=== PATIENT | female | born 1955 | race Caucasian/White ===

== ENCOUNTER 2024-07-11 12:58 | Outpatient (AMB) | payer BC, SELFPAY ==
--- NOTE | 2024-07-11 13:06 | MHC.PC.OV ---
Vital Signs 07/11/24 13:10 Height 5 ft 6 in Weight 200 lb BMI 32.3 BP 144/64 H Blood Pressure Location Rt brachial Pulse 79 Pulse Source Pulse Oximeter Temp 97.0 F Pulse Oximetry (%) 94 Intake Visit Reasons: new patient Intake Note: would like to go on ozempic Allergies No Known Allergies Allergy (Verified 07/11/24 15:16) Medication List - Last Reconciled 07/11/24 by Jelena Ramirez PA-C fluoxetine 20 mg PO DAILY lisinopril 20 mg PO DAILY PFSH Medical History (Updated 07/11/24 @ 15:22 by Jelena Ramirez PA-C) Class 1 obesity with body mass index (BMI) of 32.0 to 32.9 in adult Establishing care with new doctor, encounter for Fracture of phalanx of index finger History of mammogram (~03/2024) Renal cell carcinoma of left kidney Renal lesion Osteoarthritis Menopausal symptoms Menopause Insomnia Hypertension Hot flashes Surgical History History of colonoscopy Total knee replacement status Questionnaire PHQ-9 Over the last 2 weeks, how often have you been bothered by any of the following problems? 1. Little interest or pleasure in doing things: not at all 2. Feeling down, depressed, or hopeless: not at all 3. Trouble falling or staying asleep, or sleeping too much: nearly every day 4. Feeling tired or having little energy: several days 5. Poor appetite or overeating: more than half the days 6. Feeling bad about yourself - or that you are a failure or have let yourself or your family down: more than half the days 7. Trouble concentrating on things, such as reading the newspaper or watching television: several days 8. Moving or speaking so slowly that other people could have noticed. Or the opposite - being so fidgety or restless that you have been moving around a lot more than usual: not at all 9. Thoughts that you would be better off or of hurting yourself in some way: not at all Total score: 9 Depression Screening Interpretation: Negative Depression Screening Done: Yes 30764 - PHQ-9 Billing: Yes Source: Developed by Drs. Osvaldo Santo, Patricia Britton, Martinez Rand and colleagues, with an educational isac from [employer]. Thrive Questionnaire I am a: Patient What is your living situation today?: I have a steady place to live Within the past 12 months, did the food you bought not last and you didn't have the money to get more?: Never true Within the past 12 months, did you worry whether your food would run out before you got money to buy more?: Never true Do you have trouble paying for medicines?: No Do you have trouble getting transportation to medical appointments?: No Do you have trouble paying your heating and electricity bill?: No Do you have trouble taking care of your child, family member or friend?: No Do you have trouble with day-to-day activities such as bathing, preparing meals, shopping, managing finances, etc.?: No Are you currently unemployed and looking for a job?: No Are you interested in more education?: No THRIVE Score: 0 AUDIT C Alcohol Use Questionnaire (AUDIT-C) 1. How often do you have a drink containing alcohol?: 4 or more times a week 2. How many drinks containing alcohol do you have on a typical day when you are drinking?: 1 or 2 3. How often do you have six or more drinks on one occasion?: Never Total Score: 4 Score Reviewed/Action Taken: Yes (Is improving her intake of alcohol with this new weight watchers program ) WILLIAM-7 AMB Questionnaire WILLIAM-7 Feeling nervous, anxious, or on edge: 0 = Not at all Not being able to stop or control worryin = Several days Worrying too much about different things: 0 = Not at all Trouble relaxin = Not at all Being so restless that it is hard to sit still: 0 = Not at all Becoming easily annoyed or irritable: 1 = Several days Feeling afraid as if something awful might happen: 0 = Not at all Total WILLIAM-7 score (0-4 normal; 5-9 mild; 10-14 moderate; 15-21 severe): 2 Source: Developed by Drs. Osvaldo Santo, Martinez Diaz and colleagues, with an educational isac from [employer]. WILLIAM-7 Assessment Billing WILLIAM-7 Assessment Tool: WILLIAM-7 Assessment 41008 Physical exam (Primary Care) Vital Signs: Last Vital Signs Temp 97.0 F 03/26/25 13:10 Pulse 79 07/11/24 13:10 BP 144/64 H 07/11/24 13:10 Pulse Ox 94 07/11/24 13:10 Care Plan Goal for BP management: <130/80 will continue current regimen of lisinopril 20 mg daily patient to reassess and will monitor at next visit BMI result Body Mass Index 32.3 BMI Assessment/Plan discussion: High BMI High, discussed plan: lifestyle, weight reduction, dietary, physical activity and alcohol moderation PHQ-9: PHQ-9 Score PHQ-9: Total score 9 07/11/24 13:48 Depression Screening Interpretation: Negative Coding Level of Care Code New Pt Level 4 (42995) Complex EM visit Add On G2211 Diagnoses Establishing care with new doctor, encounter for Z76.89 Insomnia G47.00 Menopause Z78.0 Menopausal symptoms N95.1 Osteoarthritis M19.90 Renal lesion N28.9 Renal cell carcinoma of left kidney C64.2 Hypertension I10 Hot flashes R23.2 Class 1 obesity with body mass index (BMI) of 32.0 to 32.9 in adult E66.811; Z68.32 Additional Codes WILLIAM-7 Assessment Billing - WILLIAM-7 Assessment Tool: WILLIAM-7 Assessment 37040 ([id number]) PHQ-9 - 04466 - PHQ-9 Billing: Yes ([id number]) Assessment & Plan Assessment & Plan (1) Establishing care with new doctor, encounter for: Code(s): Z76.89 - Persons encountering health services in other specified circumstances Category: Medical (2) Insomnia: Code(s): G47.00 - Insomnia, unspecified Category: Medical Plan: Continue CBD gummies for sleep; assess effectiveness. Condition is chronic and stable continue to monitor. (3) Menopause: Code(s): Z78.0 - Asymptomatic menopausal state Category: Medical Plan: Continue fluoxetine; monitor efficacy and symptoms. Condition is chronic and stable continue to monitor. (4) Menopausal symptoms: Code(s): N95.1 - Menopausal and female climacteric states Category: Medical Plan: Continue fluoxetine; monitor efficacy and symptoms. Condition is chronic and stable continue to monitor. (5) Osteoarthritis: Code(s): M19.90 - Unspecified osteoarthritis, unspecified site Category: Medical Plan: Monitor joint function; physical activity encouraged. (6) Renal lesion: Code(s): N28.9 - Disorder of kidney and ureter, unspecified Category: Medical Plan: Monitor for recurrence; condition stable post-procedure. (7) Renal cell carcinoma of left kidney: Comment: s/p Renal Ablation Cryotherapy Code(s): C64.2 - Malignant neoplasm of left kidney, except renal pelvis Category: Medical Plan: Monitor for recurrence; condition stable post-procedure. (8) Hypertension: Code(s): I10 - Essential (primary) hypertension Category: Medical Plan: Continue with lisinopril; monitor blood pressure at home. (9) Hot flashes: Code(s): R23.2 - Flushing Category: Medical Plan: Continue fluoxetine; monitor efficacy and symptoms. (10) Class 1 obesity with body mass index (BMI) of 32.0 to 32.9 in adult: Code(s): E66.811 - Obesity, class 1; Z68.32 - Body mass index [BMI] 32.0-32.9, adult Category: Medical Plan: Patient to improve her diet and exercise regimen as she is currently doing. Condition is chronic and stable continue to monitor. Plan Plan Patient was informed and verbally consented to the use of an ambient scribe for clinic note documentation during this visit. 1. Malignant Neoplasm Of Kidney, Left Post Cryotherapy Monitor for recurrence; condition stable post-procedure. 2. Essential Hypertension Continue with lisinopril; monitor blood pressure at home. 3. Insomnia Continue CBD gummies for sleep; assess effectiveness. 4. Menopausal Symptoms Hot Flashes Continue fluoxetine; monitor efficacy and symptoms. 5. Osteoarthritis With Bilateral Knee Replacements Monitor joint function; physical activity encouraged. Discussion Notes I discussed the ongoing management of her essential hypertension and emphasized the importance of home monitoring of blood pressure. We reviewed her menopausal symptoms and the current regimen with fluoxetine, agreeing to continue as it is effective for her hot flashes. Regarding insomnia, she has successfully transitioned to CBD gummies, which she feels are working well, so ongoing use is reasonable unless side effects emerge. For her osteoarthritis and history of knee replacements, we advised maintaining physical activity within comfort levels to support joint health. Her prior kidney cryotherapy for a malignancy shows no recurrence, and routine follow-up continues to monitor stability. We discussed her interests in weight management options under the [employer] program, including possible pharmaceutical interventions. She will complete recommended lab work, fasting, to assess baseline health before considering medication such as Wegovy. We also reviewed follow-up in six months if labs are normal, sooner if needed. Orders: Orders Comprehensive [place]. Panel Fast Today Z00.00 - Encounter for general adult medical examination without abnormal findings Lipid Panel Today Z00.00 - Encounter for general adult medical examination without abnormal findings C Reactive Protein Today Z00.00 - Encounter for general adult medical examination without abnormal findings Complete Blood Count Auto Diff Today Z00.00 - Encounter for general adult medical examination without abnormal findings Erythrocyte Sedimentation Rate Today Z00.00 - Encounter for general adult medical examination without abnormal findings Hemoglobin A1c Today Z00.00 - Encounter for general adult medical examination without abnormal findings Magnesium Today Z00.00 - Encounter for general adult medical examination without abnormal findings Liver Panel Today Z00.00 - Encounter for general adult medical examination without abnormal findings TSH reflex Free T4 Today Z00.00 - Encounter for general adult medical examination without abnormal findings Vitamin B12 and Folate Today Z00.00 - Encounter for general adult medical examination without abnormal findings Vitamin D 25-OH Total Today Z00.00 - Encounter for general adult medical examination without abnormal findings Patient Instructions: Patient Instructions - Continue taking lisinopril as prescribed. - Monitor blood pressure at home; report significant changes. - Use fluoxetine for managing hot flashes, and notify if improvements aren't observed. - Continue with CBD gummies for sleep, noting their effectiveness. - Engage in regular physical activity to support joint health. - Complete fasting lab tests as ordered to assess overall health before weight management pharmaceutical options. - Follow up in six months or sooner if lab results indicate a need for earlier evaluation. Scribe Plan - Not visible on output: History of Present Illness The patient is a 68-year-old female presenting for new patient appointment to discuss her chronic medical conditions and to establish a new primary care provide and to discuss weight management options. Her medical history is significant for Essential Hypertension, managed with lisinopril, and she has been symptomatically stable. She experiences menopausal hot flashes, for which she has been prescribed fluoxetine, with no symptoms of depression or anxiety. She reports insomnia, managed successfully with CBD gummies after previous use of Ambien. She underwent bilateral knee replacements in 2018 for osteoarthritis, improving her joint function. In 2017, she had cryotherapy for a malignant neoplasm of the left kidney without recurrence. She actively partakes in routine health screenings, including recent mammography and a history of colonoscopy due to family history of colon cancer. Her lifestyle modifications include participation in [employer], where she is considering medical weight management options such as Wegovy. She reports feeling generally well without significant acute complaints. 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 - Exercise: Increasing physical activity. - Nutritional intake: Engaged in [employer] for weight management. - Weight management: Currently exploring pharmaceutical options through [employer], such as Wegovy. Review of Systems - Cardiovascular: Denies chest pain, dyspnea on exertion or resting. - Gastrointestinal: Denies black or bloody stools. - Genitourinary: Denies dysuria, hematuria. - Musculoskeletal: Denies recent falls. - Neurological: Denies dizziness, weakness, or headaches. - Psychiatric: Denies depression and anxiety. Physical Exam Appearance: Alert. Oriented X3. No acute distress. Head: Normal external exam. Normocephalic. Atraumatic. Eyes: Pupils are equal, round, and reactive to light. Extraocular movements intact. Conjunctiva and sclera normal. Eyelids normal. Ears: External auditory canal normal. Tympanic membranes normal. Throat: Pharynx normal. Uvula midline. Moist mucous membranes. Neck: Normal inspection. Neck supple. Full range of motion. No adenopathy. Thyroid Normal. No meningeal signs. No neck mass noted. Cardiovascular: Normal heart rate and rhythm. Heart sound normal. No murmurs noted. Pulses normal throughout. Respiratory: No respiratory distress. Painless inspiration. Breath sounds normal. No wheezes/rales/rhonchi noted. Chest nontender. No accessory muscle usage noted or decreased air movement noted. Abdomen: Soft and nontender. Bowel sounds normal in all 4 quadrants. No distention noted. No organomegaly noted. No visible injury noted. Back: No costovertebral angle tenderness. Full range of motion noted. Skin: Skin warm and dry. Normal skin color. Normal skin turgor. No rashes/lesions/lacerations noted. Extremities: No lower extremity edema. Extremities exhibit normal range of motion. Extremities nontender. Neuro: Oriented X 3. No motor deficit. No sensory deficit. Reflexes normal. Results - Labs: Not completed during the visit, plans made for comprehensive testing including CBC, CMP, HbA1c, thyroid function, and lipid profile in preparation for weight management program.
[2024-07-11 13:10] VITALS: BP 144/64; PULSE 79; TEMP 36.1; O2SAT 94; BMI 32.3
== END 2024-07-11 13:53 | disposition home or self-care (01) ==
LOC: HO.HMCSH 12:58
PROVIDERS: PCP Internal Medicine; Visit Provider Physician Assistant Medical
DX: G47.00 Insomnia, unspecified (principal); N95.1 Menopausal and female climacteric states; I10 Essential (primary) hypertension; E66.811 Obesity, class 1; Z68.32 Body mass index [BMI] 32.0-32.9, adult; M19.90 Unspecified osteoarthritis, unspecified site; N28.9 Disorder of kidney and ureter, unspecified; C64.2 Malignant neoplasm of left kidney, except renal pelvis; R23.2 Flushing

== ENCOUNTER → 2024-07-11 12:58 | Outpatient (BNVA) | payer BC, SELFPAY | PROVIDERS: PCP Internal Medicine; Visit Provider Physician Assistant Medical | DX: Z76.89 Persons encountering health services in other specified circumstances (principal); G47.00 Insomnia, unspecified; N95.1 Menopausal and female climacteric states; M19.90 Unspecified osteoarthritis, unspecified site; N28.9 Disorder of kidney and ureter, unspecified; C64.2 Malignant neoplasm of left kidney, except renal pelvis; I10 Essential (primary) hypertension; R23.2 Flushing; E66.811 Obesity, class 1; Z68.32 Body mass index [BMI] 32.0-32.9, adult; Z96.653 Presence of artificial knee joint, bilateral | CPT/HCPCS: 96127 ==

== ENCOUNTER 2024-07-13 10:32 | Outpatient (REF) | payer MEDICARE, SELFPAY ==
[2024-07-13 13:23] LABS: MANUAL DIFF FLAG NO
[2024-07-13 13:46] LABS: Basophils Absolute Auto 0.1 X10*3/uL (0.0-0.2); Basophils Percent Auto 1.1 % (0-2); Eosinophils Absolute Auto 0.4 X10*3/uL (0.0-0.4); Eosinophils Percent Auto 6.7 % (0-4); Hematocrit 41.8 % (37.0-47.0); Hemoglobin 13.7 g/dl (12.0-16.0); Imm Gran Abs Auto 0.02 X10*3/uL (0.00-0.03); Imm Gran Pct Auto 0.3 % (0.0-0.4); Lymphocytes Absolute Auto 2.5 X10*3/uL (1.2-4.9); Lymphocytes Percent Auto 37.3 % (20-40); Mean Corpuscular HGB Conc 32.8 g/dl (31.0-35.0); Mean Corpuscular Hemoglobin 29.8 pg (27.0-33.0); Mean Corpuscular Volume 90.9 fL (80.0-98.0); Mean Platelet Volume 9.3 fL (9.4-12.3); Monocytes Absolute Auto 0.7 X10*3/uL (0.1-1.2); Neutrophils Absolute Auto 2.9 x10*3/uL (2.0-8.3); Neutrophils Percent Auto 43.6 % (45-73); Platelet Count 293 X10*3/uL (160-400); Red Cell Distribution Width 13.3 % (11.0-16.0); White Blood Count 6.6 X10*3/uL (4.8-10.8)
[2024-07-13 13:51] LABS: Estimated Average Glucose 126 mg/dL; Hemoglobin A1C 152.6079 umol/L; Total Hemoglobin (HGBA1C) 3607.1593 umol/L
[2024-07-13 14:14] LABS: Alanine Aminotransferase 15 U/L (0-31); Albumin Level 4.4 g/dL (3.5-5.0); Anion Gap 10 (12-20); Aspartate Amino Transferase 23 U/L (5-31); Bilirubin Direct 0.2 mg/dL (0.0-0.5); Bilirubin Total 0.5 mg/dL (0.0-1.0); Blood Urea Nitrogen 17 mg/dL (9-16); C Reactive Protein 0.19 mg/dL (< or = 0.50); Calcium 9.4 mg/dL (8.4-10.2); Carbon Dioxide 26 mmol/L (22-29); Chloride 111 mmol/L (96-108); Cholesterol 206 mg/dL (<200); Estimated Glomerular Filt Rate > 60; Glucose Fasting 101 mg/dL (60-99); HDL Cholesterol 64 mg/dL (>40); LDL Cholesterol Calculated 125 mg/dL (<100); Magnesium 2.1 mg/dL (1.6-2.6); Potassium 4.1 mmol/L (3.3-5.1); Sodium 143 mmol/L (135-145); TSH reflex Free T4 1.65 uIU/mL (0.32-4.0); Total Protein 7.2 g/dL (6.5-8.0); Triglycerides 88 mg/dL (<150); Vitamin D 25-OH Total 42.9 ng/mL (>30)
[2024-07-13 14:23] LABS: Folate 11.1 ng/mL (> or = 4.0); Vitamin B12 241 pg/mL (200-900)
[2024-07-13 14:34] LABS: Alkaline Phosphatase 58 U/L (39-117)
[2024-07-13 14:38] LABS: Erythrocyte Sedimentation Rate 5 MM/HR (0-20)
== END 2024-07-13 10:33 | disposition home or self-care (01) ==
LOC: HO.HMGCLDS 10:32
PROVIDERS: Visit Provider Physician Assistant Medical
DX: Z00.00 Encounter for general adult medical examination without abnormal findings (principal); Z13.1 Encounter for screening for diabetes mellitus; Z13.6 Encounter for screening for cardiovascular disorders
CPT/HCPCS: 36415; 80053; 80061; 80076; 82248; 82306; 82607; 82746; 83036; 83735; 84443; 85025; 85652; 86140

== ENCOUNTER 2025-01-11 08:53 | Outpatient (AMB) | payer MEDICARE, SELFPAY ==
--- NOTE | 2025-01-11 09:09 | MHC.PC.OV ---
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 Accompanied by: Self / Same As Patient Allergies No Known Allergies Allergy (Verified 01/11/25 09:40) Medication List - Last Reconciled 01/11/25 by Jelena Ramirez PA-C docusate sodium (Colace) 100 mg PO BID 90 days fluoxetine 20 mg PO DAILY lisinopril 20 mg PO DAILY polyethylene glycol 3350 (Miralax) 17 grams PO BID tirzepatide (weight loss) (Zepbound) 5 mg subcut QWEEK Tobacco use date assessed: 01/11/25 Fall risk assessment: No Falls in past year Last assessed Fall Risk: 01/11/25 Dental Screening Dental Screen Date: 01/11/25 Did you have a dental visit in the last 12 months?: Yes Did you have a dental problem in the last 6 months where you did not have access to dental care?: No Was dental information given to patient?: Patient has dentist HPI 6 month f/u HPI Details The patient is a 69-year-old female presenting for a follow-up visit to address hyperlipidemia and hypertension management. The patient reports a history of hyperlipidemia, with her last cholesterol level recorded at 206 mg/dL and LDL cholesterol at 125 mg/dL. She has been actively managing her weight through [employer] and has successfully reduced her weight from 200 pounds to 176 pounds since June. The patient is considering rechecking her cholesterol levels before starting any medication. The patient also has a history of hypertension, for which she is currently taking lisinopril. She requires a refill for lisinopril and fluoxetine, which are part of her current medication regimen. The patient has a family history of colon cancer, prompting regular colonoscopy screenings. Her last colonoscopy was performed at [facility], and she is due for another screening. She has undergone a mammogram at [facility] this year, which was normal per the patient. The patient has not had a bone density scan recently, despite a history of osteoporosis. She is open to scheduling a repeat scan to assess her bone health. There is a concern for potential vitamin B12 deficiency due to her weight loss regimen, and a recheck of her vitamin B12 levels is planned. Social History - Weight management: Actively participating in [employer] program, resulting in significant weight loss. - Chcf: Patient is retired and managing insurance coverage for medications. [facility]LY [facility] Medical History (Updated 01/11/25 @ 09:46 by Jelena Ramirez PA-C) Preventative health care Osteoporosis screening Hyperlipidemia LDL goal <100 Class 1 obesity with body mass index (BMI) of 32.0 to 32.9 in adult Establishing care with new doctor, encounter for Fracture of phalanx of index finger History of mammogram (~03/2024) Renal cell carcinoma of left kidney Renal lesion Osteoarthritis Menopausal symptoms Menopause Insomnia Hypertension Hot flashes Surgical History History of colonoscopy Total knee replacement status Family History Father BP (high blood pressure) Mother Cancer Parkinson disease Social History Housing: House Alcohol intake: current Alcohol intake frequency: a few times a week Patient Tobacco Use Status: Never used Tobacco service: No Current occupational status: retired Cognitive needs: No Hearing needs: No Vision needs: Yes (rx glasses) Questionnaire PHQ-9 Over the last 2 weeks, how often have you been bothered by any of the following problems? 1. Little interest or pleasure in doing things: not at all 2. Feeling down, depressed, or hopeless: not at all 3. Trouble falling or staying asleep, or sleeping too much: not at all 4. Feeling tired or having little energy: not at all 5. Poor appetite or overeating: not at all 6. Feeling bad about yourself - or that you are a failure or have let yourself or your family down: not at all 7. Trouble concentrating on things, such as reading the newspaper or watching television: not at all 8. Moving or speaking so slowly that other people could have noticed. Or the opposite - being so fidgety or restless that you have been moving around a lot more than usual: not at all 9. Thoughts that you would be better off or of hurting yourself in some way: not at all Total score: 0 Depression Screening Interpretation: Negative Depression Screening Done: Yes 96400 - PHQ-9 Billing: Yes Source: Developed by Drs. Osvaldo Santo, Patricia Britton, Martinez Rand and colleagues, with an educational isac from [employer]. Thrive Questionnaire Date Thrive assessed: 01/11/25 I am a: Patient What is your living situation today?: I have a steady place to live Within the past 12 months, did the food you bought not last and you didn't have the money to get more?: Never true Within the past 12 months, did you worry whether your food would run out before you got money to buy more?: Never true Do you have trouble paying for medicines?: No Do you have trouble getting transportation to medical appointments?: No Do you have trouble paying your heating and electricity bill?: No Do you have trouble taking care of your child, family member or friend?: No Do you have trouble with day-to-day activities such as bathing, preparing meals, shopping, managing finances, etc.?: No Are you currently unemployed and looking for a job?: No Are you interested in more education?: No Please select the resources that you would like help with: None THRIVE Score: 0 AUDIT C Alcohol Use Questionnaire (AUDIT-C) 1. How often do you have a drink containing alcohol?: 2-3 times a week 2. How many drinks containing alcohol do you have on a typical day when you are drinking?: 1 or 2 3. How often do you have six or more drinks on one occasion?: Never Total Score: 3 Score Reviewed/Action Taken: No WILLIAM-7 AMB Questionnaire WILLIAM-7 Date WILLIAM - 7 assessed: 01/11/25 Feeling nervous, anxious, or on edge: 0 = Not at all Not being able to stop or control worryin = Not at all Worrying too much about different things: 0 = Not at all Trouble relaxin = Not at all Being so restless that it is hard to sit still: 0 = Not at all Becoming easily annoyed or irritable: 0 = Not at all Feeling afraid as if something awful might happen: 0 = Not at all Total WILLIAM-7 score (0-4 normal; 5-9 mild; 10-14 moderate; 15-21 severe): 0 Source: Developed by Drs. Osvaldo Santo, Patricia Britton, Martinez Rand and colleagues, with an educational isac from [employer]. WILLIAM-7 Assessment Billing WILLIAM-7 Assessment Tool: WILLIAM-7 Assessment 33769 Review of Systems Const Details: - General: Denies nausea, dizziness, or chest pain. - Gastrointestinal: Reports occasional constipation managed with Colace and MiraLax. All systems reviewed & are unremarkable except as noted in HPI and below Physical exam (Primary Care) Vital Signs: Last Vital Signs Temp 98.2 F 01/11/25 09:10 Pulse 72 01/11/25 09:10 Resp 14 01/11/25 09:10 BP 105/59 L 01/11/25 09:10 Pulse Ox 97 01/11/25 09:10 Oxygen Delivery Method Room Air 01/11/25 09:10 Care Plan Goal for BP management: <140/90 at Goal BMI result Body Mass Index 27.6 BMI Assessment/Plan discussion: High BMI High, discussed plan: lifestyle, weight reduction, dietary, physical activity, alcohol moderation and other Tobacco/Smoking Status: Tobacco use Status Tobacco use date assessed 01/11/25 01/11/25 09:12 Patient Tobacco Use Status Never used Tobacco 01/11/25 09:19 PHQ-9: PHQ-9 Score PHQ-9: Total score 0 01/11/25 09:12 Depression Screening Interpretation: Negative Thrive Assessment: Date of Thrive Assessment Date Thrive assessed 01/11/25 01/11/25 09:12 Const Other: Appearance: Alert. Oriented X3. No acute distress. Head: Normal external exam. Normocephalic. Atraumatic. Eyes: Pupils are equal, round, and reactive to light. Extraocular movements intact. Conjunctiva and sclera normal. Eyelids normal. Throat: Pharynx normal. Uvula midline. Moist mucous membranes. Neck: Normal inspection. Neck supple. Full range of motion. Cardiovascular: Normal heart rate and rhythm. Respiratory: No respiratory distress. Painless inspiration. Abdomen: Soft and nontender. No distention noted. No organomegaly noted. N Back: Full range of motion noted. Skin: Skin warm and dry. Normal skin color. Extremities: Extremities exhibit normal range of motion. Office Procedures Flu Questionnaire Does the patient have a severe egg allergy?: No Does the patient have severe life threatening allergies?: No Does the patient have a fever or illness today?: No Has the patient ever had Guillain-Mckinney Syndrome?: No Has the patient ever had any past reaction to a flu shot?: No Immunizations Fluarix [id number] (PF) 45 mcg (15 mcg x 3)/0.5 mL IM syringe Performing Provider: Jelena Ramirez PA-C [place] [facility] Administered by: HOLLY rKuse on 01/11/25 09:19 Dose Route Admin Location Dispensed Lot Number Expiration Date [employer] 0.5 mL IM Left Deltoid 0.5 mL [id number] 10/15/25 [id number] [employer] VIS Given Date VIS Provided VIS Publication Date 01/11/25 Single Vaccine 24 Eligibility Eligibility Date Funding Source Not [facility] Eligible 01/11/25 Private Results Reviewed Results Reviewed: - Labs: Total cholesterol 206 mg/dL, LDL cholesterol 125 mg/dL. - Labs: Vitamin B12 level previously at 241 pg/mL. Coding Level of Care Code Est Pt Level 4 (50416) Complex EM visit Add On G2211 Diagnoses Hypertension I10 Hyperlipidemia LDL goal <100 E78.5 Osteoporosis screening Z13.820 Preventative health care Z00.00 Insomnia G47.00 Additional Codes PHQ-9 - 14612 - PHQ-9 Billing: Yes ([id number]) WILLIAM-7 Assessment Billing - WILLIAM-7 Assessment Tool: WILLIAM-7 Assessment 44553 ([id number]) Assessment & Plan Assessment & Plan (1) Hypertension: Code(s): I10 - Essential (primary) hypertension Category: Medical Plan: The patient will continue lisinopril for hypertension management, with a prescription refill provided for 90 days with three refills. (2) Hyperlipidemia LDL goal <100: Code(s): E78.5 - Hyperlipidemia, unspecified Category: Medical Plan: The patient will have her cholesterol levels rechecked before considering medication, given the recent weight loss and lifestyle changes. (3) Osteoporosis screening: Code(s): Z13.820 - Encounter for screening for osteoporosis Category: Medical Plan: A bone density scan is recommended to assess the current status of osteoporosis. (4) Preventative health care: Code(s): Z00.00 - Encounter for general adult medical examination without abnormal findings Category: Medical Plan: A vitamin B12 level will be rechecked due to potential deficiency risk associated with weight loss medication. The patient is due for a colonoscopy, given her family history of colon cancer. The patient has completed a mammogram this year, normal per patient. (5) Insomnia: Code(s): G47.00 - Insomnia, unspecified Category: Medical Plan: Patient reports insomnia requesting prescription for Ambien or Xanax at least 15 pills reports she has nightmares with trazodone will discuss this with Dr. Saah and call her back. Plan Plan Patient was informed and verbally consented to the use of an ambient scribe for clinic note documentation during this visit. 1. Hyperlipidemia The patient will have her cholesterol levels rechecked before considering medication, given the recent weight loss and lifestyle changes. 2. Hypertension The patient will continue lisinopril for hypertension management, with a prescription refill provided for 90 days with three refills. 3. Osteoporosis A bone density scan is recommended to assess the current status of osteoporosis. 4. Vitamin B12 Deficiency Risk A vitamin B12 level will be rechecked due to potential deficiency risk associated with weight loss medication. 5. Preventative Care: Colon Cancer Screening The patient is due for a colonoscopy, given her family history of colon cancer. 6. Preventative Care: Mammogram The patient has completed a mammogram this year, normal per patient. During the visit, we discussed the importance of rechecking cholesterol levels before initiating medication, considering the patient's significant weight loss and lifestyle changes. We also reviewed the need for a bone density scan due to the patient's history of osteoporosis and the potential risk of vitamin B12 deficiency with her current weight loss regimen. Preventative care measures, including colonoscopy and mammogram, were addressed, with plans to follow up on pending results and schedule necessary screenings. Orders: Orders Vitamin B12 and Folate Today Z00.00 - Encounter for general adult medical examination without abnormal findings XR DEXA axial skeleton Today M81.0 - Age-related osteoporosis without current pathological fracture Zinc Today Z00.00 - Encounter for general adult medical examination without abnormal findings Vitamin B1 Today Z00.00 - Encounter for general adult medical examination without abnormal findings Comprehensive [place]. Panel Fast Today Z00.00 - Encounter for general adult medical examination without abnormal findings Influenza [id number] Immunization Today Z23 - Encounter for immunization Lipid Panel Today Z00.00 - Encounter for general adult medical examination without abnormal findings Vitamin A Today Z00.00 - Encounter for general adult medical examination without abnormal findings Vitamin D 25-OH Total Today Z00.00 - Encounter for general adult medical examination without abnormal findings Medications: New docusate sodium (Colace) 100 mg PO BID 180 caps 3RF 90 days lisinopril 20 mg PO DAILY 90 tabs 3RF polyethylene glycol 3350 (Miralax) 17 grams PO BID 100 ea 3RF fluoxetine 20 mg PO DAILY 90 caps 3RF Patient Instructions: - Schedule a follow-up appointment in six months or sooner if needed. - Continue with current weight management program and monitor cholesterol levels. - Refill lisinopril and fluoxetine prescriptions as directed. - Complete recommended screenings, including colonoscopy and mammogram. - Consider taking vitamin D and B12 supplements as discussed.
[2025-01-11 09:10] VITALS: BP 105/59; PULSE 72; RESP 14; TEMP 36.8; O2SAT 97; BMI 27.6
--- OUTSIDE RECORDS SUMMARY | 2025-01-11 09:28 | XMS_ITS | Clinical Summary ---
Author Organization [facility] Address [address] [facility] [address] [place] [address] Phone Care Team Providers Care Director Immunology Name Role Phone Heena Hurt MOTOR AND CHASSIS INSPECTOR Unavailable [phone] Pcp, Unknown Primary Care Provider Unavailabl e Allergies No known active allergies Medications famotidine (PEPCID) 10 MG tablet Take 10 mg by mouth daily as needed for heartburn. Active acetaminophen (TYLENOL) 325 mg tablet Take 650 mg by mouth every 6 (six) hours as needed for mild pain (prn). Active PROAIR HFA 90 mcg/actuation inhaler INHALE 2 PUFFS BY MOUTH EVERY 4 HOURS NEEDED SHAKE WELL BEFORE USING 8.5 g 2 1 Active amoxicillin (AMOXIL) 500 MG capsule Take 4 capsules by mouth one hour before dental procedure 4 capsule 4 2 Active ibuprofen (MOTRIN ORAL) Take by mouth. prn Active lisinopril (PRINIVIL,ZESTRIL ) 20 MG tabletIndications :Essential hypertension take 1 tablet by mouth daily 90 tablet 3 4 Active FLUoxetine (PROZAC) 20 MG capsuleIndication s:Other depression take 1 capsule by mouth daily 90 capsule 3 4 Active gabapentin (NEURONTIN) 300 MG capsuleIndication s:Foraminal stenosis of lumbar region Take 1 capsule (300 mg total) by mouth 2 (two) times a day as needed. 60 capsule 4 Active zolpidem (AMBIEN) 10 mg tablet TAKE 1/2 TO 1 TABLET BY MOUTH AT BEDTIME NEEDED 20 tablet 4 Active Active Problems Problem Noted Date Diagnosed Date Foraminal stenosis of lumbar region 06/21/2023 Primary insomnia 03/30/2023 Acute bilateral low back pain with bilateral sci atica 03/30/2023 Assessment & Plan (05/19/2023 10:31 AM EST): B/l LE seem slightly weaker than the b/l upper ext- however, they are symmetrical. She does not feel her legs are any weaker. She was unaware that the PT ref was placed in Dec- she will call them as this has helped in the past. If not better we discuss a ref to [facility] or back to Dr. 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 She does not feel her legs are any weaker. She was unaware that the PT ref was placed in Dec- she will call them as this has helped in the past. If not better we discuss a ref to [facility] or back to Dr. Poon as next steps to which she was agreeable Seasonal allergies 08/30/2019 History of bilateral knee replacement 09/21/2018 Essential hypertension 09/21/2018 History of renal cell carcinoma 08/01/2017 Overview (06/08/2023): Cancer was dx by Dr. Morales at [facility] in 2017. 11/2016 had a bx done left kidney mass, path= renal cell carcinoma,clear cell type. Was tx with ablation cryotherapy in 01/2017 Immunizations Immunization Administration Dates Next Due COVID-19 (Pre-02/07) Pfizer Vaccine, mRNA, PF ,06/30/2020 INFLUENZA, SPLIT VIRUS, TRIVALENT PF 02/15/2018, 12/23/2016 INFLUENZA, SPLIT VIRUS, TRIVALENT W/ PRESERVATIV E IM 02/18/2014 Influenza Quadrivalent Preservative Free IM 01/16,01/10/2020 Influenza, Unspecified Formulation 01/16/2023 Pneumococcal conjugate PCV13 01/10/2020 Pneumococcal polysaccharide PPSV23 01/01/2021, Tdap 01/10/2020,09/27/2017 Tetanus toxoid, unspecified formulation 05/03/19 00 Family History Medical History Relation Comments Hyperlipidemia Brother Hypertension Brother No Known Problems Daughter Heart attack Father Hypertension Father Stroke Maternal Grandmother Stroke Maternal Uncle Breast cancer Mother Cancer Mother Colon cancer Mother Parkinson's disease Mother Hypertension Sibling No Known Problems Sister 1 Hyperlipidemia Sister 2 Hypertension Sister 2 Lung cancer Sister 2 Thyroid cancer Sister 2 Ulcerative colitis Sister 2 No Known Problems Son Relation Status Comments Brother Alive Daughter Alive Father (Age 63) Maternal Grandmother Maternal Uncle Mother Sibling Sister 1 Alive Sister 2 Alive Son Alive Social History Tobacco Use Types Packs/Day Years Used Date Smoking Tobacco: Never Smokeless Tobacco: Never Tobacco Cessation:Counseling Given: Not Answered Alcohol Use Standard Drinks/Week Comments Yes 2 (1 standard drink = 0.6 oz pur e alcohol) 1-2 drinks, 2-3 x week, wine Child or Family Care Answer Date Record ed Do you have problems with on e of the following making it difficult for you to work, study, or receive health care? No 03/30/2023 Education Answer Date Recorded Are you interested in more education? Not on ashia e 06/24/2023 Are you concerned about learning? Not on file 06/24/2023 No 06/24/2023 No 06/24/2023 Food Answer Date Recorded Within the past 6 months we worried whether our food would run out before we got money to buy more. Never True 03/30/2023 Within the past 6 months the food we bought just didn't last and we didn't have enough money to get more. Never True Residential Stability Answer Date Recor ded What is your housing situation today? I have melissa sing 03/30/2023 How many times have you move d in the past 12 months? Zero (I did not move) 03/30/2023 Paying for Meds Answer Date Recorded Do you have trouble paying for medicines? No 03/30/2023 Paying Utility Bills Answer Date Record ed Do you have trouble paying your heating or elect ricity bill? No 03/30/2023 Transportation Answer Date Recorded Has the lack of transportati on kept you from medical appointments or from getting medications? No 03/30/2023 Unemployment Answer Date Recorded Are you currently unemployed or working on a part-time or temporary basis, and looking for work? No 06/22/2021 Digital Access Answer Date Recorded No 03/30/2023 Yes 03/30/2023 Do you have reliable internet access at home? Ye s 03/30/2023 Do you have a device (e.g., phone, tablet, computer) with a working camera? Yes 03/30/2023 Intimate Partner Violence Answer Date R ecorded Denied Basic Needs Not on file 03/30/2023 In the past 12 months have y ou been in a relationship with a person who hurts, threatens, or tries to control you? No 03/30/2023 Worried food would run out Not on file 03/30 In the past 12 months have y ou been in a relationship with a person who hurts, threatens, or tries to control you? No 03/30/2023 Comments No Sex and Gender Information Value Date Recorded Sex Assigned at Not on file Legal Sex Female 9:53 PM EDT Gender Identity Not on file Sexual Orientation Not on file Last Filed Vital Signs Vital Sign Reading Time Taken Comments Blood Pressure 110/60 05/19/2023 8:32 AM EST Pulse 72 05/19/2023 8:32 AM EST Temperature 36.4 C (97.6 F) 05/19/2023 8:32 AM EST Respiratory Rate 16 03/30/2023 10:44 AM EST Oxygen Saturation 99% 05/19/2023 8:32 AM EST Inhaled Oxygen Concentration - - Weight 84.8 kg (187 lb) 05/19/2023 8:32 AM EST Height 168.3 cm (5' 6.25 ) 05/19/2023 8:32 AM ES T Body Mass Index 29.96 05/19/2023 8:32 AM EST Plan of Treatment Health Maintenance Due Date Last Done Comments COLOGUARD 2001 FIT TEST 2001 FOBT 2001 SIGMOIDOSCOPY 2001 VIRTUAL COLONOSCOPY 2001 ZOSTER VACCINES (1 of 2) 2006 BLOOD PRESSURE 11/17/2023 05/19/2023 DEPRESSION SCREENING 03/30/2024 03/30/2023 CREATININE LEVEL 04/04/2024 04/04/2023, , 06/22/2021, Additional history exists POTASSIUM LEVEL 04/04/2024 04/04/2023, 03/0 10/2021, 10/17/2018, Additional history exists MAMMOGRAM 09/21/2024 09/21/2022, 02/16, 11/29/2019, Additional history exists INFLUENZA VACCINE (#1) 2024 , 01/26/2021, 01/10/2020, Additional history exists COVID-19 VACCINE ( season) 2024 01/20/2021, 07/28/2020, 06/30/2020 SCREENING FOR DIABETES 04/04/2026 , 06/22/2021, 12/23/2016 LIPID PANEL 04/04/2028 04/04/2023, 03/18, 04/04/2023, Additional history exists Adult Td,Tdap Booster 01/09/2030 01/10/2020, 018 RSV VACCINE (1 - 1-dose 75+ series) 08/22/2031 COLONOSCOPY 12/22/2032 12/22/2022, 06/07/2013 COLORECTAL CANCER SCREENING 12/22/2032 OSTEOPOROSIS SCREENING INITIAL (ONE-TIME) Completed 11/03/2018 PNEUMOCOCCAL VACCINES (50+ years) Completed 01/01/2021, 01/10/2020, 07/07/2012 HEPATITIS C SCREENING Completed 06/22/2021, 022 SMOKING STATUS SCREENING (Once After 26 Yrs) Completed 05/19/2023 HEPATITIS A VACCINES Aged Out No long er eligible based on patient's age to complete this topic HIB VACCINES Aged Out No longer eligi ble based on patient's age to complete this topic MENINGOCOCCAL VACCINES (ACWY) Aged Out No longer eligible based on patient's age to complete this topic MENINGOCOCCAL VACCINES (B) Aged Out N o longer eligible based on patient's age to complete this topic Medical Devices Not on file Procedures Procedure Name Priority Date/Time Associated Diagnosis Comments COMPREHENSIVE METABOLIC PANEL Routine 04/04/2023 1:19 PM EST Routine general medical examination at a health care facility OUTSIDE HDL Routine 04/04/2023 OUTSIDE GLUCOSE FASTING Routine 04/04/2023 OUTSIDE POTASSIUM LEVEL Routine 04/04/2023 HM COLONOSCOPY FOR RESULT ENTRY ONLY Routine 12/22/2022 HM MAMMOGRAPHY Routine 09/21/2022 HEPATITIS C ANTIBODY, QUALITATIVE Routine 06/22/2021 BD DXA SCREENING Routine 11/03/2018 from Last 3 Months or Most Recently Relevant to Health Maintenance Results * Comprehensive metabolic panel (04/04/2023 1:19 PM EST) Blood Result [facility] Heena Hurt NP LAB BLOOD ORDERABLES Final Resu lt [address] [address] * Outside Potassium Level (04/04/2023) Potassium level - External 4.3 3.4 - 5.0 mmol/L Result [facility] Historical Provider LAB BLOOD ORDERABLES Ariana l Result * Outside Glucose,Fasting (04/04/2023) Glucose, fasting - External 96 65 - 99 mg/dL Result [facility] Historical Provider LAB BLOOD ORDERABLES Ariana l Result * Outside HDL (04/04/2023) HDL - External 77 40 - 80 mg/dL Result [facility] Historical Provider LAB BLOOD ORDERABLES Ariana l Result * HM COLONOSCOPY FOR RESULT ENTRY ONLY (12/22/2022) us Heena Hurt NP HEALTH MAINTENANCE Edited Resul t - Final * HM MAMMOGRAPHY FOR RESULT ENTRY ONLY (09/21/2022) us Heena Hurt NP HEALTH MAINTENANCE Edited Resul t - Final * Hepatitis C antibody, qualitative (06/22/2021) us Heena Hurt NP LAB BLOOD ORDERABLES Edited Res ult - Final * DXA Screening (11/03/2018) Anatomical Region Laterality Modality Bone Density Bone Density Heena Hurt NP IMG BD BONE DENSITY DEXA Edited Result - Final from Last 3 Months or Most Recently Relevant to Health Maintenance Insurance [facility] [address] [place], [place] [id number] [place], [place] [id number] [facility] PPO PHCS [facility] PPO [facility] Care Teams Director Immunology Relationship Specialty Start Date End Date Pcp, Unknown PCP - General 06/17/23 Heena Hurt NP [email or web address] Historical LMR Provider 01/31/17 Additional Source Comments The information contained in this document represents components of the legal health record. It is not the complete legal health record.[facility]
--- OUTSIDE RECORDS SUMMARY | 2025-01-11 09:28 | XMS_ITS | Clinical Summary ---
Author Organization [facility] it Address [address] [place] [address] Care Team Providers Care Marketing Team Lead Name Role Phone Unavailable Primary Care Provider Unavailabl e Social History Tobacco Use Types Packs/Day Years Used Date Smoking Tobacco: Never Assessed Comments Unknown Sex and Gender Information Value Date Recorded Sex Assigned at Not on file Legal Sex Female 5:15 PM EST Gender Identity Not on file Sexual Orientation Not on file Plan of Treatment Health Maintenance Due Date Last Done Comments Breast Cancer Screening 1955 Zoster Vaccines (1 of 2) 2006 Depression Screening 04/18/2024 COVID-19 Vaccine ( - 2024- season) 2024 01/20/2021, 07/28/2020, 06/30/2020 Influenza Vaccine (#1) 2024 3, 01/16/2023, 01/26/2021, Additional history exists DTaP,Tdap,and Td Vaccines (3 - Td or Tdap) 01/09/2030 01/10/2020, 09/27/2017 RSV Immunization Adult Patients (1 - 1-dose 75+ series) 08/22/2031 Pneumococcal Vaccine: 50+ Years Completed 01/01/2021, 01/10/2020, 07/07/2012 HIB Vaccines Aged Out No longer eligi ble based on patient's age to complete this topic HPV Vaccines Aged Out No longer eligi ble based on patient's age to complete this topic Hepatitis A Vaccines Aged Out No long er eligible based on patient's age to complete this topic Hepatitis B Vaccines Aged Out No long er eligible based on patient's age to complete this topic IPV Vaccines Aged Out No longer eligi ble based on patient's age to complete this topic MMR Vaccines Aged Out No longer eligi ble based on patient's age to complete this topic Meningococcal ACWY Vaccine Aged Out N o longer eligible based on patient's age to complete this topic Meningococcal B Vaccine Aged Out No l onger eligible based on patient's age to complete this topic RSV Immunization Patients Under 20 months Aged Out No longer eligible based on patient's age to complete this topic Varicella Vaccines Aged Out No longer eligible based on patient's age to complete this topic
== END 2025-01-11 09:37 | disposition home or self-care (01) ==
LOC: HO.HMCH 08:53
PROVIDERS: PCP Internal Medicine; Visit Provider Physician Assistant Medical
DX: I10 Essential (primary) hypertension (principal); E78.5 Hyperlipidemia, unspecified; Z13.820 Encounter for screening for osteoporosis; Z00.00 Encounter for general adult medical examination without abnormal findings; G47.00 Insomnia, unspecified; Z23 Encounter for immunization

== ENCOUNTER → 2025-01-11 08:53 | Outpatient (BNVA) | payer MEDICARE, SELFPAY | PROVIDERS: PCP Internal Medicine; Visit Provider Physician Assistant Medical | DX: Z00.00 Encounter for general adult medical examination without abnormal findings (principal); I10 Essential (primary) hypertension; G47.00 Insomnia, unspecified; E78.5 Hyperlipidemia, unspecified; M81.0 Age-related osteoporosis without current pathological fracture; Z23 Encounter for immunization | CPT/HCPCS: 90471; 90656; 96127; 99212 ==

== ENCOUNTER 2025-01-21 08:18 | Outpatient (REF) | payer MEDICARE, SELFPAY ==
--- OUTSIDE RECORDS SUMMARY | 2025-01-21 08:41 | XMS_ITS | Clinical Summary ---
Author Organization [facility] it Address [address] [place] [address] Care Team Providers Care Foam Rubber Molder Name Role Phone Unavailable Primary Care Provider [...]
--- OUTSIDE RECORDS SUMMARY | 2025-01-21 08:41 | XMS_ITS | Clinical Summary ---
Author Organization [facility] Address [address] [facility] [address] [place] [address] Phone Care Team Providers Care Ground Worker Name Role Phone Heena Hurt CHIEF ORDER DISPATCHER Unavailable [phone] Pcp, Unknown Primary Care Provider Unavailabl [...] Cancer was dx by Dr. Morales at [facility] in 2017. 11/2016 had a bx done [...] panel (04/04/2023 1:19 PM EST) Blood Result [facility] Heena Hurt NP LAB BLOOD ORDERABLES Final Resu lt [address] [address] * Outside Potassium Level (04/04/2023) Potassium level - External 4.3 3.4 - 5.0 mmol/L Result [facility] Historical Provider LAB BLOOD ORDERABLES Ariana l Result * Outside Glucose,Fasting (04/04/2023) Glucose, fasting - External 96 65 - 99 mg/dL Result [facility] Historical Provider LAB BLOOD ORDERABLES Ariana l Result * Outside HDL (04/04/2023) HDL - External 77 40 - 80 mg/dL Result [facility] Historical Provider LAB BLOOD ORDERABLES [...] Most Recently Relevant to Health Maintenance Insurance [facility] [address] [place] [address] [place], [place] [address] [facility] PPO PHCS [facility] Care Teams Ground Worker Relationship Specialty Start Date End Date Pcp, Unknown PCP - General 06/17/23 Heena Hurt NP [email or web address] Historical LMR Provider 01/31/17 Additional Source Comments The information contained in this document represents components of the legal health record. It is not the complete legal health record.[facility]
[2025-01-21 10:50] LABS: Alanine Aminotransferase 10 U/L (0-31); Albumin Level 4.7 g/dL (3.5-5.0); Alkaline Phosphatase 60 U/L (39-117); Anion Gap 10 (12-20); Aspartate Amino Transferase 19 U/L (5-31); Blood Urea Nitrogen 18 mg/dL (9-16); Calcium 9.7 mg/dL (8.4-10.2); Carbon Dioxide 27 mmol/L (22-29); Chloride 108 mmol/L (96-108); Cholesterol 228 mg/dL (<200); Estimated Glomerular Filt Rate > 60; HDL Cholesterol 57 mg/dL (>40); Potassium 4.2 mmol/L (3.3-5.1); Sodium 141 mmol/L (135-145); Total Protein 7.4 g/dL (6.5-8.0); Triglycerides 72 mg/dL (<150)
[2025-01-21 11:17] LABS: Folate 14.1 ng/mL (> or = 4.0); Vitamin B12 432 pg/mL (200-900)
== END 2025-01-21 08:19 | disposition home or self-care (01) ==
LOC: HO.HMGCLDS 08:18
PROVIDERS: PCP Physician Assistant Medical; Visit Provider Physician Assistant Medical
DX: Z00.00 Encounter for general adult medical examination without abnormal findings (principal); Z13.6 Encounter for screening for cardiovascular disorders
CPT/HCPCS: 36415; 80053; 80061; 82306; 82607; 82746; 84425; 84590; 84630

== ENCOUNTER 2025-03-04 09:22 | Emergency (ER) | payer MEDICARE, SELFPAY ==
--- NOTE | ~2025-03-04 | CT_ITS ---
EXAMINATION: CTA NECK WITH CONTRAST (STROKE) CTA BRAIN WITH CONTRAST (STROKE) CLINICAL INFORMATION: Dizziness, gait instability. COMPARISON: None available. TECHNIQUE: CTA of the head and neck was performed in the axial plane from the mediastinum to the skull vertex using 70 mL Omnipaque 350 intravenous contrast. Additional reformatted multiplanar images including maximum intensity projection MIP images are generated on the CT workstation. This CT examination was performed using dose optimization techniques as appropriate, variously including the following: *Automated exposure control *Adjustment of mA and/or kV according to patient size (this includes techniques or standardized protocols for targeted exams where dose is matched to indication/reason for exam; i.e. extremities or head) *Use of iterative reconstruction technique DLP: 1503 mGy-cm FINDINGS: The degree of stenosis determined by criteria similar to NASCET. Brain: Bilateral multifocal patchy deep periventricular white matter and white matter hypodensity involving centrum semiovale and san radiata. Old lacunar infarcts, basal ganglia and extracapsular. No acute intracranial hemorrhage, mass effect, midline shift, hydrocephalus or herniation. Quintanilla-white matter differentiation is normal. No increased density in the MCA's. Calcified plaques in the cavernous supracavernous segments both ICAs. Posterior cranial fossa contents demonstrated no gross masses or hemorrhage. Poor pneumatization frontal sinuses. No air-fluid levels in the paranasal sinuses. Tympanic cavities and mastoid cells are aerated, left petrous apex. No acute fracture in the bony calvarium. Chest CTA: No aneurysm or dissection in the thoracic aortic arch. Calcified plaque. Main branches are patent. Neck CTA: Right CCA: Normal patency. No focal stenosis. No intimal flap. Tortuosity. Right ICA: Calcified plaque. Normal patency. No focal stenosis. No intimal flap. Left CCA: Normal patency. No focal stenosis. No intimal flap. Left ICA: Calcified plaque. Normal patency. No focal stenosis. No intimal flap. V1/V2 segments: Normal patency. Tortuosity. No focal stenosis. No intimal flap. Left vertebral artery slightly dominant. Both origin from the subclavian arteries. Brain CTA: Anterior cerebral circulation: ICAs: Calcified plaques in the cavernous supracavernous segments. Normal patency. No focal stenosis. No abrupt cut off. No vascular irregularity. MCA's: Normal patency. No focal stenosis. No abrupt cut off. Bifurcation/trifurcation demonstrated no vascular irregularity. ACAs: Normal patency. No focal stenosis. No abrupt cut off. No vascular irregularity. Anterior communicating artery is patent without vascular irregularity. Ophthalmic arteries are patent without vascular irregularity at the origin. Right posterior communicating artery is patent without vascular irregularity. Posterior cerebral circulation: V3/V4 segments: Normal patency. No focal stenosis. No intimal flap. Left vertebral artery slightly dominant. Posterior inferior cerebellar arteries are patent. Basilar artery is patent without focal stenosis or intimal flap. Anterior inferior cerebral arteries are patent. Superior cerebellar arteries are patent. No vascular irregularity at the origin. dead mail checker: Normal patency. No focal stenosis. No abrupt cut off. No vascular irregularity. Ancillary findings: No main cerebral venous sinus thrombosis. Thyroid gland is not enlarged. No gross pulmonary nodules. Pulmonary mosaic pattern. Subtle. Cervical spondylosis C5-6 and C6-[address]/CT angio head neck IMPRESSION: No main cerebral artery occlusion or embolus. No high degree stenosis or dissection. No gross main cerebral aneurysm. This critical test result is communicated to: Physician autopsy assistant in the emergency department, Reshma Ritter at 11:36 AM on March 04, 2025 via [employer]. Electronically signed by: Lucas Kirk MD 03/04/2025 11:43 AM [facility]
--- NOTE | 2025-03-04 09:24 | ED_ITS ---
HPI - General Adult General Chief complaint: Dizziness Stated complaint: DIZZY,NAUSEA,DIARHEA PER EMS Time Seen by Provider: 03/04/25 09:23 Source: patient, family (patient's ) and EMS Mode of arrival: EMS Limitations: no limitations History of Present Illness ED Provider: Reshma Ritter PA-C HPI narrative: Patient is a 69 year old assigned female at with a history of HTN on lisinopril and HLD presenting to the emergency department today with dizziness, and nausea. Patient states that she has had some dizziness (like the room is spinning) and nausea but no vomiting. Patient denies any other complaints at this time. Related Data Home Medications ?Medication ?Instructions ?Recorded ?Confirmed tirzepatide (weight loss) 5 mg/0.5 5 mg subcut QWEEK 0 01/11/25 01/11/25 mL subcutaneous pen injector (Zepbound) Previous Rx's ?Medication ?Instructions ?Recorded docusate sodium 100 mg capsule 100 mg PO BID 90 days # 180 caps 01/11/25 (Colace) fluoxetine 20 mg capsule 20 mg PO DAILY #90 caps 12/18 10/10 lisinopril 20 mg tablet 20 mg PO DAILY #90 tabs 12/18 10/10 polyethylene glycol 3350 17 gram 17 g PO BID #100 ea 0 01/11/25 oral powder packet (Miralax) rosuvastatin 10 mg tablet (Crestor) 10 mg PO DAILY #90 tabs 01/22/25 zolpidem 10 mg tablet 10 mg PO BEDTIME #10 tabs Allergies Allergy/AdvReac Type Severity Reaction Status Date / Time No Known Allergies Allergy Verified 03/04/25 09:33 Review of Systems 2 Constitutional: Constitutional: Reports as per HPI Eyes: Eyes: Reports as per HPI ENT: Reports as per HPI Cardiovascular: Cardiovascular: Reports as per HPI Respiratory: Respiratory: Reports as per HPI Gastrointestinal: Gastrointestinal: Reports as per HPI Genitourinary: Genitourinary: Reports as per HPI Musculoskeletal: Musculoskeletal: Reports as per HPI Integumentary/Breasts: Skin/Breast: Reports as per HPI Neurologic: Reports as per HPI Psychiatric: Psychiatric: Reports as per HPI Endocrine: Endocrine: Reports as per HPI Hematologic/Lymphatic: Hematologic/Lymphatic: Reports as per HPI Allergic/Immunologic: Allergic/Immunologic: Reports as per HPI PMF Past Medical History Attestation statement: The following information was validated with the patient. (validated all information with the patient's ) Source: old records reviewed, obtained from family (patient's provided additional history and confirmed the history provided by the patient.) and nursing notes reviewed Medical History Pure hypercholesterolemia, unspecified Preventative health care Osteoporosis screening Hyperlipidemia LDL goal <100 Class 1 obesity with body mass index (BMI) of 32.0 to 32.9 in adult Establishing care with new doctor, encounter for Fracture of phalanx of index finger History of mammogram (~03/2024) Renal cell carcinoma of left kidney Renal lesion Osteoarthritis Menopausal symptoms Menopause Insomnia Hypertension Hot flashes Surgical History (Reviewed 03/04/25 @ 11: by CARYL Damian) History of colonoscopy Total knee replacement status Family History Family History Father BP (high blood pressure) Mother Cancer Parkinson disease Social History Social History Housing: House Alcohol intake: current Alcohol intake frequency: a few times a week Patient Tobacco Use Status: Never used Tobacco Advance Directives: Yes Advance Directives Information Provided: Yes Advance Directives on File: No Do you have a plan to hurt others: No Plan service: No Current occupational status: retired Cognitive needs: No Hearing needs: No Vision needs: Yes (rx glasses) Physical Exam ED Vital Signs: Vital Signs - 24 hr 03/04/25 09:26 03/04/25 10:42 03/04/25 12:12 Temperature 98.2 F 98.2 F 98.2 F Pulse Rate 99 91 85 Respiratory Rate 20 17 17 Blood Pressure 123/60 98/60 116/85 Pulse Oximetry 96 97 97 Oxygen Delivery Method Room Air Room Air BMI result Body Mass Index 25.1 Const General: cooperative, no acute distress, alert and awake Nutritional Appearance: well nourished Orientation/consciousness: patient oriented x3 HENMT Head: Yes normal to inspection and Yes atraumatic Ears: hearing grossly normal bilaterally and external ears normal General nose exam: Normal external nose present, no nasal discharge noted and no epistaxis Face and sinus: Yes normal facial exam, No abrasion and No laceration Mouth: Normal oral and palatal mucosa present, no drooling and no muffled voice Eyes General: appearance normal, both eyes and all related structures Periorbital: periorbital findings normal Eyelids: Yes eyelids normal Conjunctivae: conjunctivae normal Pupils: Equal, round and reactive pupils present EOM: EOMs intact bilaterally Neck Neck: Yes normal visual inspection and Yes full ROM Resp Effort & Inspection: normal respiratory effort and able to speak in complete sentences Neuro General: patient oriented x3, moves all extremities and CN's II-XI intact bilaterally Cranial nerves: Yes Equal, round and reactive pupils present Cognition (Neuro): normal cognition Extrem General: Yes normal to inspection, Yes full ROM and Yes capillary refill normal Psych Appearance: grossly normal Mental Status: mental status grossly normal Affect: normal affect Attitude: cooperative Thought process: Normal thought process present Thought content: Normal thought content present Insight: Good insight present (Psych) Medications Administered Discontinued Medications Generic Name Dose Route Start Last Admin Trade Name Freq PRN Reason Stop Dose Admin Diazepam 2.5 mg 03/04/25 09:32 03/04/25 09:40 Diazepam 10 Mg/2 Ml Cartridge IVPUSH 03/04/25 09:33 2.5 mg STAT STA Administration Iohexol 100 ml 03/04/25 10:30 03/04/25 10:30 Iohexol 350 Mg/Ml 100 Ml Infus..Btl IV 03/04/25 10:31 70 ml ONCE ONE Administration Ondansetron HCl 4 mg 03/04/25 09:32 03/04/25 09:40 Ondansetron Hcl 4 Mg/2 Ml Vial IVPUSH 03/04/25 09:33 4 mg ONCE ONE Administration Potassium Chloride 40 meq 03/04/25 10:10 03/04/25 10:16 Potassium Chloride Er 20 Meq Tab.Er.Prt PO 03/04/25 10:11 40 meq ONCE ONE Administration Medical Decision Making Medical Decision Making MDM Narrative: Patient is a 69 year old assigned female at with a history of HTN on lisinopril and HLD presenting to the emergency department today with dizziness, and nausea. Patient states that she has had some dizziness (like the room is spinning) and nausea but no vomiting. Patient's physical exam was as noted in the physical exam portion of this note. Patient's blood work showed a potassium of 3.2 but otherwise unremarkable. Patient's EKG was unremarkable. Patient's CTA of the head and neck showed no acute process. It did show evidence of an old lacunar infarct. Given the patient's history of HTN + HLD, I recommended she be started on a daily 81mg ASA. Patient as given IV fluids by EMS and IV valium which she stated helped her symptoms. Patient was given PO ER Potassium repletion. Patient's clinical presentation is most consistent with dizziness vs. BPPV. I explained my physical exam findings as well as all test results to the patient and the patient's . I answered all questions asked by the patient and the patient's . I stressed the importance of the patient taking her medication as directed (either prescribed or as the over the counter packaging recommends). I stressed the importance of the patient following up with her primary care provider. I stressed the importance of the patient returning to the emergency department immediately if her symptoms were to worsen or if she were to develop any dizziness, shortness of breath, difficulty breathing, chest pain, blurry vision, loss of vision, nausea, vomiting, abdominal pain, fever, chills, back pain, or any other complaints. Patient and the patient's verbalized agreement and understanding with this treatment plan and discharge. Differential Diagnosis Differential Diagnoses: The differential diagnosis associated with the presentation includes Dizziness BPPV Hypokalemia Admission/Observation Consideration of admission/observation: Escalation of care including admission/observation considered Patient would have been admitted to the hospital had her work up had any findings where hospital admission was appropriate and her clinical presentation warranted hospital admission. Lab Data [facility] Lab Attestation statement: I reviewed the patient's lab results. My interpretation of these results are in the [facility] Rationale portion of this note. 03/04/25 09:44 03/04/25 09:44 Labs: Lab Results 03/04/25 03/04/25 Range/Units 09:44 09:48 WBC 9.7 (4.8-10.8) X10*3/uL RBC 4.32 (4.20-5.50) X10*6/uL Hgb 12.5 (12.0-16.0) g/dl Hct 38.9 (37.0-47.0) % MCV 90.0 (80.0-98.0) fL MCH 28.9 (27.0-33.0) pg MCHC 32.1 (31.0-35.0) g/dl RDW 13.2 (11.0-16.0) % Plt Count 228 (160-400) X10*3/uL MPV 9.2 L (9.4-12.3) fL Immature Gran % (Auto) 0.5 H (0.0-0.4) % Neut % (Auto) 80.2 H (45-73) % Lymph % (Auto) 12.7 L (20-40) % [place] % (Auto) 2.6 (2-11) % Eos % (Auto) 3.4 (0-4) % Baso % (Auto) 0.6 (0-2) % Lymph # (Auto) 1.2 (1.2-4.9) X10*3/uL [place] # (Auto) 0.3 (0.1-1.2) X10*3/uL Eos # (Auto) 0.3 (0.0-0.4) X10*3/uL Baso # (Auto) 0.1 (0.0-0.2) X10*3/uL Abs Immat Gran (auto) 0.05 H (0.00-0.03) X10*3/uL Absolute Neuts (auto) 7.7 (2.0-8.3) x10*3/uL Absolute Nucleated RBC 0.000 (0.0-0.012) X10*3/uL Nucleated RBC % (auto) 0.0 (0.0-0.2) /100WBC PT 13.7 H (11.2-13.5) SEC INR 1.1 (0.9-1.1) Sodium 139 (135-145) mmol/L Potassium 3.2 L D (3.3-5.1) mmol/L Chloride 110 H (96-108) mmol/L Carbon Dioxide 18 L (22-29) mmol/L Anion Gap 14 (12-20) BUN 20 H (9-16) mg/dL Creatinine 0.82 (0.5-1.4) mg/dL Estim Creat Clear Calc 63.8 Estimated GFR > 60 Random Glucose 194 H (60-115) mg/dL Calcium 9.3 (8.4-10.2) mg/dL Magnesium 1.7 (1.6-2.6) mg/dL Total Bilirubin 0.5 (0.0-1.0) mg/dL AST 15 (5-31) U/L ALT 8 (0-31) U/L Alkaline Phosphatase 54 (39-117) U/L Troponin I High Sens < 2.7 (<3.5-17.0) ng/L Total Protein 6.9 (6.5-8.0) g/dL Albumin 4.4 (3.5-5.0) g/dL Influenza Type A (PCR) NEGATIVE (Negative) Influenza Type B (PCR) NEGATIVE (Negative) RSV RNA Qual (PCR) NEGATIVE (Negative) SARS-CoV-2 RNA (RT-PCR) NEGATIVE (Negative) Independent Interpretation I performed an independent interpretation of an: EKG and CT Scan Interpretation: My interpretation is in agreement with the radiologist's impression of this imaging study. L Reason for Exam: dizziness, gait instability EXAMINATION: CTA NECK WITH CONTRAST (STROKE) CTA BRAIN WITH CONTRAST (STROKE) CLINICAL INFORMATION: Dizziness, gait instability. COMPARISON: None available. TECHNIQUE: CTA of the head and neck was performed in the axial plane from the mediastinum to the skull vertex using 70 mL Omnipaque 350 intravenous contrast. Additional reformatted multiplanar images including maximum intensity projection MIP images are generated on the CT workstation. This CT examination was performed using dose optimization techniques as appropriate, variously including the following: *Automated exposure control *Adjustment of mA and/or kV according to patient size (this includes techniques or standardized protocols for targeted exams where dose is matched to indication/reason for exam; i.e. extremities or head) *Use of iterative reconstruction technique DLP: 1503 mGy-cm FINDINGS: The degree of stenosis determined by criteria similar to NASCET. Brain: Bilateral multifocal patchy deep periventricular white matter and white matter hypodensity involving centrum semiovale and san radiata. Old lacunar infarcts, basal ganglia and extracapsular. No acute intracranial hemorrhage, mass effect, midline shift, hydrocephalus or herniation. Quintanilla-white matter differentiation is normal. No increased density in the MCA's. Calcified plaques in the cavernous supracavernous segments both ICAs. Posterior cranial fossa contents demonstrated no gross masses or hemorrhage. Poor pneumatization frontal sinuses. No air-fluid levels in the paranasal sinuses. Tympanic cavities and mastoid cells are aerated, left petrous apex. No acute fracture in the bony calvarium. Chest CTA: No aneurysm or dissection in the thoracic aortic arch. Calcified plaque. Main branches are patent. Neck CTA: Right CCA: Normal patency. No focal stenosis. No intimal flap. Tortuosity. Right ICA: Calcified plaque. Normal patency. No focal stenosis. No intimal flap. Left CCA: Normal patency. No focal stenosis. No intimal flap. Left ICA: Calcified plaque. Normal patency. No focal stenosis. No intimal flap. V1/V2 segments: Normal patency. Tortuosity. No focal stenosis. No intimal flap. Left vertebral artery slightly dominant. Both origin from the subclavian arteries. Brain CTA: Anterior cerebral circulation: ICAs: Calcified plaques in the cavernous supracavernous segments. Normal patency. No focal stenosis. No abrupt cut off. No vascular irregularity. MCA's: Normal patency. No focal stenosis. No abrupt cut off. Bifurcation/trifurcation demonstrated no vascular irregularity. ACAs: Normal patency. No focal stenosis. No abrupt cut off. No vascular irregularity. Anterior communicating artery is patent without vascular irregularity. Ophthalmic arteries are patent without vascular irregularity at the origin. Right posterior communicating artery is patent without vascular irregularity. Posterior cerebral circulation: V3/V4 segments: Normal patency. No focal stenosis. No intimal flap. Left vertebral artery slightly dominant. Posterior inferior cerebellar arteries are patent. Basilar artery is patent without focal stenosis or intimal flap. Anterior inferior cerebral arteries are patent. Superior cerebellar arteries are patent. No vascular irregularity at the origin. plasterer helper: Normal patency. No focal stenosis. No abrupt cut off. No vascular irregularity. Ancillary findings: No main cerebral venous sinus thrombosis. Thyroid gland is not enlarged. No gross pulmonary nodules. Pulmonary mosaic pattern. Subtle. Cervical spondylosis C5-6 and C6-[address]/CT angio head neck IMPRESSION: No main cerebral artery occlusion or embolus. No high degree stenosis or dissection. No gross main cerebral aneurysm. This critical test result is communicated to: Physician salon assistant in the emergency department, Reshma Ritter at 11:36 AM on March 04, 2025 via [employer]. Electronically signed by: Lucas Kirk MD 03/04/2025 11:43 AM [facility] [place]ict[place] By: Lucas Smiley MD Signed By: Electronically signed by Lucas Meléndez MD 03/04/25 1143 I independently interpreted this EKG and am in agreement with the below findings: Vent. Rate: 100 BPM Atrial Rate: * BPM P-R Int: * ms QRS Dur: 92 ms QT Int: 536 ms P-R-T Axes: * 55 48 degrees QTcB Int: 691 ms Sinus tachycardia No previous ECGs available DD/ [id number] Radiology Impression Discussion of test interpretation with radiology: I have reviewed the radiologist's reading. Independent Historian Clinical information obtained from an independent historian. History obtained from or confirmed by: Spouse (Patient's provided additional history and confirmed the history provided by the patient) and EMS (EMS provided additional history and confirmed the history provided by the patient) Chronic Conditions Patient?s care impacted by: Hypertension Discharge Plan Discharge Clinical Impression: Dizziness, Acute hypokalemia Patient Disposition: Home, Self-Care Instructions: Potassium Content of Foods List (ED), Hypokalemia (ED), Dizziness (ED) Additional Instructions: Your work up today was reassuring there is no EMERGENT cause for your symptoms. Your potassium was 3.2 (normal is 3.3-5.1) - I gave you some while in the department. Please be sure to follow up on this with your primary care provider. Your CTA of the head and neck showed no acute process. Please be sure to stay well hydrated and well rested. IF you are prescribed home medications and/or you are taking over the counter medications at home - it is very important you continue to do so as prescribed / directed unless told otherwise. Follow up with your primary care provider. Return to the emergency department immediately if your symptoms worsen or if you develop any numbness, tingling, dizziness, shortness of breath, difficulty breathing, chest pain, blurry vision, loss of vision, nausea, vomiting, abdominal pain, fever, chills, back pain, or any other complaints. Please see the information below about our Patient Portal. If you are not yet enrolled in the [facility] Patient Portal, you will receive an enrollment email invitation following your visit to any [facility] setting. You may also self-enroll in the Patient Portal by visiting our website: [email or web address] The following information is required to access the Patient Portal: - Your [facility] Medical Record Number - Your personal home email address (must match what is in your electronic medical record, Registration staff can assist with this) - Name - Date of Capabilities of the Patient Portal: - Message some providers - View upcoming appointments - Access your health summary, medical history, and visit history - View current conditions and allergies - View procedure and lab results - View your medications, including guidelines, side effects, and precautions - Complete pre-appointment questionnaires requested by your provider - Ready summary reports of your office visits and procedures To access the Patient Portal Mobile Alec, follow these directions: - Search [employer] in the Alec Store or [employer] Store - Download the Alec - Search for [facility] - Enter your login/password Prescriptions: No Action rosuvastatin [Crestor] 10 mg tablet 10 mg PO DAILY Qty: 90 3RF zolpidem 10 mg tablet 10 mg PO BEDTIME Qty: 10 0RF Zepbound 5 mg/0.5 mL pen injector 5 mg subcut QWEEK polyethylene glycol 3350 [Miralax] 17 gram powder in packet 17 g PO BID Qty: 100 3RF docusate sodium [Colace] 100 mg capsule 100 mg PO BID 90 Days Qty: 180 3RF fluoxetine 20 mg capsule 20 mg PO DAILY Qty: 90 3RF lisinopril 20 mg tablet 20 mg PO DAILY Qty: 90 3RF Referrals: Jelena Ramirez PA-C [Primary Care Provider, Internal Medicine] Interventions: ED Discharge Assessment Last Done: 03/04/25 12:12 Discharge Date/Time: 03/04/25 12:13 Print Language: Uruguayan
[2025-03-04 09:26] VITALS: BP 120/61; BP 123/60; PULSE 104; PULSE 99; RESP 20; TEMP 36.8; O2SAT 96; O2SAT 98; BMI 25.1
--- NOTE | 2025-03-04 09:32 | ECG_ITS ---
Test Reason : WEAKNESS Blood Pressure : */* mmHG Vent. Rate : 100 BPM Atrial Rate : * BPM P-R Int : * ms QRS Dur : 92 ms QT Int : 390 ms P-R-T Axes : * 55 48 degrees QTcB Int : 503 ms Normal sinus rhythm Nonspecific ST abnormality Prolonged QT Abnormal ECG No previous ECGs available Referred By: Reshma Ritter Electronically Signed By: ZANE HUBBARD
[2025-03-04] MEDS: diazePAM 10 MG/2 ML CARTRIDGE 2.5 MG IVPUSH (09:40)
[2025-03-04 09:53] LABS: MANUAL DIFF FLAG NO
[2025-03-04 09:55] LABS: Hematocrit 38.9 % (37.0-47.0); Hemoglobin 12.5 g/dl (12.0-16.0); Imm Gran Abs Auto 0.05 X10*3/uL (0.00-0.03); Imm Gran Pct Auto 0.5 % (0.0-0.4); Lymphocytes Absolute Auto 1.2 X10*3/uL (1.2-4.9); Mean Corpuscular HGB Conc 32.1 g/dl (31.0-35.0); Mean Corpuscular Hemoglobin 28.9 pg (27.0-33.0); Mean Corpuscular Volume 90.0 fL (80.0-98.0); NRBC Abs Auto 0.000 X10*3/uL (0.0-0.012); NRBC Pct Auto 0.0 /100WBC (0.0-0.2); Platelet Count 228 X10*3/uL (160-400); Red Blood Count 4.32 X10*6/uL (4.20-5.50); White Blood Count 9.7 X10*3/uL (4.8-10.8)
[2025-03-04 10:00] LABS: INTERNATIONAL NORM RATIO 1.1 (0.9-1.1); Prothrombin Time 13.7 SEC (11.2-13.5)
[2025-03-04 10:08] LABS: Alanine Aminotransferase 8 U/L (0-31); Albumin Level 4.4 g/dL (3.5-5.0); Alkaline Phosphatase 54 U/L (39-117); Anion Gap 14 (12-20); Aspartate Amino Transferase 15 U/L (5-31); Blood Urea Nitrogen 20 mg/dL (9-16); Calcium 9.3 mg/dL (8.4-10.2); Carbon Dioxide 18 mmol/L (22-29); Chloride 110 mmol/L (96-108); Creatinine Clr Calc Pharmacy 63.8; Estimated Glomerular Filt Rate > 60; Magnesium 1.7 mg/dL (1.6-2.6); Potassium 3.2 mmol/L (3.3-5.1); Sodium 139 mmol/L (135-145); Total Protein 6.9 g/dL (6.5-8.0)
[2025-03-04] MEDS: Potassium Chloride ER 20 MEQ TAB.ER.PRT 40 MEQ PO (10:16)
[2025-03-04 10:20] LABS: Troponin-I High Sensitivity < 2.7 ng/L (<3.5-17.0)
[2025-03-04] MEDS: iohexoL 350 MG/ML 100 ML INFUS..BTL IV (10:30)
[2025-03-04 10:31] LABS: Resp Syncy Virus RNA Qual PCR NEGATIVE (Negative); SARS COV2 PCR INHOUSE NEGATIVE (Negative)
[2025-03-04 10:42] VITALS: BP 98/60; PULSE 91; RESP 17; TEMP 36.8; O2SAT 97
[2025-03-04 12:12] VITALS: BP 116/85; PULSE 85; RESP 17; TEMP 36.8; O2SAT 97
== END 2025-03-04 12:13 | disposition home or self-care (01) ==
PROVIDERS: Physician Assistant Medical; Emergency Provider Emergency Medicine; PCP Physician Assistant Medical
DX: E87.6 Hypokalemia (principal); R42 Dizziness and giddiness; R19.7 Diarrhea, unspecified; I10 Essential (primary) hypertension; M54.2 Cervicalgia; R94.31 Abnormal electrocardiogram [ECG] [EKG]; Z79.899 Other long term (current) drug therapy; Z03.818 Encounter for observation for suspected exposure to other biological agents ruled out; Z51.81 Encounter for therapeutic drug level monitoring
CPT/HCPCS: 70496; 70498; 80053; 83735; 84484; 85025; 85610; 87637; 93005; 96374; 96375; 99284; J2405; J3360; Q9967

== ENCOUNTER → 2025-03-04 09:32 | Outpatient (BNV) | payer MEDICARE, SELFPAY | PROVIDERS: Emergency Provider Emergency Medicine; PCP Physician Assistant Medical; Visit Provider Internal Medicine | DX: R94.31 Abnormal electrocardiogram [ECG] [EKG] (principal); R53.1 Weakness | CPT/HCPCS: 93010 ==

== ENCOUNTER → 2025-03-04 09:32 | Outpatient (BNV) | payer MEDICARE, SELFPAY | PROVIDERS: Emergency Provider Emergency Medicine; PCP Physician Assistant Medical; Visit Provider Radiology Diagnostic Radiology | DX: R42 Dizziness and giddiness (principal); R26.81 Unsteadiness on feet | CPT/HCPCS: 70496; 70498 ==

== ENCOUNTER 2025-03-11 08:08 | Outpatient (AMB) | payer MEDICARE, SELFPAY ==
--- NOTE | 2025-03-11 08:12 | A.OFFPC_ITS ---
Vital Signs 03/11/25 08:18 Height 5 ft 6.93 in Weight 158 lb BMI 24.8 BP 114/64 Blood Pressure Location Rt brachial Pulse 86 Pulse Source Pulse Oximeter Temp 97 F Pulse Oximetry (%) 99 Intake Visit Reasons: ED follow up/ vertigo Intake Note: Patient stats she still feels sick to her stomach since last week. Allergies No Known Allergies Allergy (Verified 03/11/25 08:14) Tobacco use date assessed: 01/11/25 Dental Screening Dental Screen Date: 03/11/25 Did you have a dental visit in the last 12 months?: Yes Did you have a dental problem in the last 6 months where you did not have access to dental care?: Yes Was dental information given to patient?: Patient has dentist HPI HPI Comments History of Present Illness Details History of Present Illness - The patient is a 69 year old individua l presenting for follow-up after an Emergency Department visit last Tuesday for acute, severe lightheadedness, an inability to walk, and nausea, which required an ambulance. - Since being discharged, the patient waddell s continued to feel lightheaded and nauseous, with the addition of a right-sided headache and a feeling of weakness. 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 - A CT of the chest and neck were normal , although the imaging noted cervical spondylosis, which was a new finding for the patient. - Blood work at that time showed low pot assium and slightly high glucose. - The patient's current medications incl ude aspirin 81 mg daily (started after the ED visit), fluoxetine, lisinopril, Crestor, and Ambien, for which consumption is being split. - The patient has also been on Zepbound weekly since June for weight loss and has gone from 200 pounds to 160 pounds. Social History - Weight Management: The patient is taki ng Zepbound and has had significant weight loss from 200 pounds down to 160 pounds since June. - Functional Status: The patient reports being unable to drive last week due to symptoms but was able to drive to the current appointment. Results - Labs (from recent ED visit): Revealed low potassium and slightly elevated glucose. - Imaging (from recent ED visit): - CT Head: Negative for acute stroke; sh owed evidence of a prior CVA. - CT Chest: Normal. - CT Neck: Normal, with incidental findi ng of cervical spondylosis. [facility] Medical History Pure hypercholesterolemia, unspecified Preventative health care Osteoporosis screening Hyperlipidemia LDL goal <100 Class 1 obesity with body mass index (BMI) of 32.0 to 32.9 in adult Establishing care with new doctor, encounter for Fracture of phalanx of index finger History of mammogram (~03/2024) Renal cell carcinoma of left kidney Renal lesion Osteoarthritis Menopausal symptoms Menopause Insomnia Hypertension Hot flashes Surgical History History of colonoscopy (~12/22/22) Total knee replacement status Family History Father BP (high blood pressure) Mother Cancer Parkinson disease Social History Housing: House Alcohol intake: current Alcohol intake frequency: a few times a week Patient Tobacco Use Status: Never used Tobacco service: No Current occupational status: retired Cognitive needs: No Hearing needs: No Vision needs: Yes (rx glasses) Questionnaire PHQ-9 Over the last 2 weeks, how often have you been bothered by any of the following problems? 1. Little interest or pleasure in doing things: not at all 2. Feeling down, depressed, or hopeless: not at all 3. Trouble falling or staying asleep, or sleeping too much: not at all 4. Feeling tired or having little energy: not at all 5. Poor appetite or overeating: not at all 6. Feeling bad about yourself - or that you are a failure or have let yourself or your family down: not at all 7. Trouble concentrating on things, such as reading the newspaper or watching television: not at all 8. Moving or speaking so slowly that other people could have noticed. Or the o pposite - being so fidgety or restless that you have been moving around a lot more than usual: not at all 9. Thoughts that you would be better off or of hurting yourself in some way: not at all Total score: 0 Depression Screening Interpretation: Negative Depression Screening Done: Yes 94897 - PHQ-9 Billing: Yes Source: Developed by Drs. Osvaldo Santo, Martinez Diaz and colleagues, with an educational isac from [employer]. Thrive Questionnaire Date Thrive assessed: 01/11/25 I am a: Patient What is your living situation today?: I have a steady place to live Within the past 12 months, did the food you bought not last and you didn't have the money to get more?: Never true Within the past 12 months, did you worry whether your food would run out before you got money to buy more?: Never true Do you have trouble paying for medicines?: No Do you have trouble getting transportation to medical appointments?: No Do you have trouble paying your heating and electricity bill?: No Do you have trouble taking care of your child, family member or friend?: No Do you have trouble with day-to-day activities such as bathing, preparing meals, shopping, managing finances, etc.?: No Are you currently unemployed and looking for a job?: No Are you interested in more education?: No Please select the resources that you would like help with: None THRIVE Score: 0 AUDIT C Alcohol Use Questionnaire (AUDIT-C) 1. How often do you have a drink containing alcohol?: 2-3 times a week 2. How many drinks containing alcohol do you have on a typical day when you are drinking?: 1 or 2 3. How often do you have six or more drinks on one occasion?: Never Total Score: 3 Score Reviewed/Action Taken: No WILLIAM-7 AMB Questionnaire WILLIAM-7 Date WILLIAM - 7 assessed: 01/11/25 Feeling nervous, anxious, or on edge: 0 = Not at all Not being able to stop or control worryin = Not at all Worrying too much about different things: 0 = Not at all Trouble relaxin = Not at all Being so restless that it is hard to sit still: 0 = Not at all Becoming easily annoyed or irritable: 0 = Not at all Feeling afraid as if something awful might happen: 0 = Not at all Total WILLIAM-7 score (0-4 normal; 5-9 mild; 10-14 moderate; 15-21 severe): 0 Source: Developed by Patricia Arteaga Kurt Kroenke and colleagues, with an educational isac from [employer]. WILLIAM-7 Assessment Billing WILLIAM-7 Assessment Tool: WILLIAM-7 Assessment 93788 Review of Systems Narrative Review of Systems - General: Reports weakness and feeling as though strength is not returning. - Neurological: Reports persistent lightheadedness and a right-sided headache. - Gastrointestinal: Reports persistent nausea. Physical exam (Primary Care) Vital Signs: Last Vital Signs Temp 97 F 03/11/25 08:18 Pulse 86 03/11/25 08:18 BP 114/64 03/11/25 08:18 Pulse Ox 99 03/11/25 08:18 BMI result Body Mass Index 24.8 Tobacco/Smoking Status: Tobacco use Status Tobacco use date assessed 01/11/25 03/11/25 08:19 Patient Tobacco Use Status Never used Tobacco 03/11/25 08:19 PHQ-9: PHQ-9 Score PHQ-9: Total score 0 03/11/25 08:20 Depression Screening Interpretation: Negative Thrive Assessment: Date of Thrive Assessment Date Thrive assessed 01/11/25 03/11/25 08:19 Narrative Physical Exam General: Appearance normal, both eyes and all related structures Nutritional Appearance: Well nourished Orientation/consciousness: Patient oriented x3 Limitations: No limitations Head: Headache on right side Neck: Normal visual inspection, spondylosis in the cervical spine Chest: Normal palpation of entire chest wall Respiratory: Normal respiratory effort Neurology: Patient oriented x3, no ulnar drift Coding Level of Care Code Complex visit Add On G2211 Diagnoses Dizziness R42 Additional Codes WILLIAM-7 Assessment Billing - WILLIAM-7 Assessment Tool: WILLIAM-7 Assessment 01306 ([id number]) PHQ-9 - 29422 - PHQ-9 Billing: Yes ([id number]) Assessment & Plan Assessment & Plan (1) Dizziness: Code(s): R42 - Dizziness and giddiness Plan Plan - Discontinue Zepbound (weight loss medication) temporarily. - Prescribe an antiemetic for nausea to be taken as needed for a couple of days. - Order repeat blood work today to re-evaluate electrolytes, specifically potassium. - Advise the patient to rest and limit activities. - Schedule a follow-up visit for next Tuesday to reassess symptoms. Discussion Notes I reviewed the patient's recent emergency department visit, noting the workup was largely reassuring and negative for an acute stroke, though it did identify an old CVA and previously unknown cervical spondylosis. We discussed the persistent symptoms of lightheadedness and nausea. I proposed a plan which includes temporarily holding the Zepbound, as it could be contributing to the nausea, and I will prescribe medication to help with the nausea for a couple of days. I also recommended repeating blood work to recheck electrolytes, advising rest, and scheduling a follow-up visit for next Tuesday to re-evaluate. The patient was agreeable to this plan. Patient Instructions - Please stop taking your Zepbound, the weight loss medication, for now. - I am prescribing a medication for your nausea; take it for the next couple of days as needed. - Go to the lab to have your blood drawn today so we can check your potassium levels again. - Please get some rest and avoid going out too much. - We will see you back in the office next Tuesday for a follow-up. - Continue taking all of your other medications as prescribed, including the new baby aspirin. Orders: Orders Influenza [id number] Immunization Today Z23 - Encounter for immunization Medications: New Fluarix [id number] (PF) (flu vac ts (6mos up)-PF) 0.5 mL IM ONCE 0.5 mL 0RF NS Z23 - Encounter for immunization
[2025-03-11 08:18] VITALS: BP 114/64; PULSE 86; TEMP 36.1; O2SAT 99; BMI 24.8
--- OUTSIDE RECORDS SUMMARY | 2025-03-11 08:18 | XMS_ITS | Clinical Summary ---
Author Organization [facility] it Address [address] [place] [address] Care Team Providers Care Marketing Programs Manager Name Role Phone Unavailable Primary Care Provider [...]
--- OUTSIDE RECORDS SUMMARY | 2025-03-11 08:18 | XMS_ITS | Clinical Summary ---
Author Organization [facility] Address [address] [facility] [address] [place] [address] Phone Care Team Providers Care Skin Former Name Role Phone Heena Hurt SILK SNAPPER Unavailable [phone] Pcp, Unknown Primary Care Provider Unavailabl [...] Date/Time Associated Diagnosis Comments COMPREHENSIVE METABOLIC PANEL (CMP) Routine 04/04/2023 1:19 PM EST Routine general [...] metabolic panel (04/04/2023 1:19 PM EST) Blood Heena Hurt NP LAB BLOOD BKR ORDERABLES Final Result [address] [address] * Outside Potassium Level (04/04/2023) Potassium level - External 4.3 3.4 - 5.0 mmol/L Result [facility] Historical Provider LAB BLOOD ORDERABLES Ariana l Result * Outside Glucose,Fasting (04/04/2023) Glucose, fasting - External 96 65 - 99 mg/dL Result [facility] Historical Provider LAB BLOOD ORDERABLES Ariana l Result * Outside HDL (04/04/2023) HDL - External 77 40 - 80 mg/dL Historical Provider LAB BLOOD ORDERABLES Ariana l Result * HM COLONOSCOPY FOR RESULT ENTRY ONLY (12/22/2022) us Heena Hurt NP HEALTH MAINTENANCE Edited Resul t - Final * HM MAMMOGRAPHY FOR RESULT ENTRY ONLY (09/21/2022) Heena Hurt NP HEALTH MAINTENANCE Edited Resul t - Final * Hepatitis C antibody, qualitative (06/22/2021) Heena Hurt NP LAB BLOOD BKR ORDERABLES Edited Result - Final * DXA Screening (11/03/2018) Anatomical Region Laterality Modality Bone Density Bone Density Heena Hurt NP IMG BD BONE DENSITY DEXA Edited Result - Final from Last 3 Months or Most Recently Relevant to Health Maintenance Insurance [facility] [place] [address] [place] [address] PPO [facility] Care Teams Skin Former Relationship Specialty Start Date End Date Pcp, Unknown PCP - General 06/17/23 Heena Hurt NP [email or web address] Historical LMR Provider 01/31/17 Additional Source Comments The information contained in this document represents components of the legal health record. It is not the complete legal health record.[facility]
== END 2025-03-11 08:32 | disposition home or self-care (01) ==
LOC: HO.HMCSH 08:08
PROVIDERS: PCP Physician Assistant Medical; Visit Provider Internal Medicine
DX: R42 Dizziness and giddiness (principal)

== ENCOUNTER 2025-03-11 08:08 | Outpatient (REF) | payer MEDICARE, SELFPAY ==
[2025-03-11 10:20] LABS: Hematocrit 39.6 % (37.0-47.0); Hemoglobin 13.1 g/dl (12.0-16.0); Mean Corpuscular HGB Conc 33.1 g/dl (31.0-35.0); Mean Corpuscular Hemoglobin 29.4 pg (27.0-33.0); Mean Corpuscular Volume 89.0 fL (80.0-98.0); NRBC Abs Auto 0.000 X10*3/uL (0.0-0.012); NRBC Pct Auto 0.0 /100WBC (0.0-0.2); Platelet Count 259 X10*3/uL (160-400); Red Blood Count 4.45 X10*6/uL (4.20-5.50); White Blood Count 6.9 X10*3/uL (4.8-10.8)
[2025-03-11 10:58] LABS: Anion Gap 13 (12-20); Blood Urea Nitrogen 16 mg/dL (9-16); Calcium 9.7 mg/dL (8.4-10.2); Carbon Dioxide 24 mmol/L (22-29); Chloride 108 mmol/L (96-108); Estimated Glomerular Filt Rate > 60; Potassium 3.6 mmol/L (3.3-5.1); Sodium 141 mmol/L (135-145)
== END 2025-03-11 08:09 | disposition home or self-care (01) ==
LOC: HO.HMGCLDS 08:08
PROVIDERS: PCP Physician Assistant Medical; Visit Provider Internal Medicine
DX: I10 Essential (primary) hypertension (principal); R42 Dizziness and giddiness
CPT/HCPCS: 36415; 80048; 85027; 96127; 99212

== ENCOUNTER 2025-03-12 15:14 | Outpatient (REF) | payer MEDICARE, SELFPAY ==
[2025-03-12 16:08] LABS: Appearance Urine Clear; Glucose Urine UA Negative (Negative); PH 6.0 (5.0-9.0); Specific Gravity - Urine 1.020 (1.005-1.025); UMIC TRIGGER UACC YES
[2025-03-12 16:24] LABS: UACC Culture Trigger YES
--- OUTSIDE RECORDS SUMMARY | 2025-03-12 18:55 | XMS_ITS | Clinical Summary ---
Author Organization [facility] it Address [address] [place] [address] Care Team Providers Care Instrument Assembly Supervisor Name Role Phone Unavailable Primary Care Provider [...]
--- OUTSIDE RECORDS SUMMARY | 2025-03-12 18:55 | XMS_ITS | Clinical Summary ---
Author Organization [facility] Address [address] [facility] [address] [place] [address] Phone Care Team Providers Care Deputy County Attorney Name Role Phone Heena Hurt DISTRICT RANGER Unavailable [phone] Pcp, Unknown Primary Care Provider Unavailabl [...] Cancer was dx by Dr. Morales at [facility] in 2017. 11/2016 had a bx done [...] NP LAB BLOOD BKR ORDERABLES Final Result [address] [address] * Outside Potassium Level (04/04/2023) Potassium level - External 4.3 3.4 - 5.0 mmol/L Result [facility] Historical Provider LAB BLOOD ORDERABLES Ariana l Result * Outside Glucose,Fasting (04/04/2023) Glucose, fasting - External 96 65 - 99 mg/dL Result [facility] Historical Provider LAB BLOOD ORDERABLES [...] Most Recently Relevant to Health Maintenance Insurance [facility] [place] [address] [place] [address] PPO [facility] Care Teams Deputy County Attorney Relationship Specialty Start Date End Date Pcp, Unknown PCP - General 06/17/23 Heena Hurt NP [email or web address] Historical LMR Provider 01/31/17 Additional Source Comments The information contained in this document represents components of the legal health record. It is not the complete legal health record.[facility]
== END 2025-03-12 15:15 | disposition home or self-care (01) ==
LOC: HO.HMGCLDS 15:14
PROVIDERS: PCP Physician Assistant Medical; Visit Provider Physician Assistant Medical
DX: Z00.00 Encounter for general adult medical examination without abnormal findings (principal)
CPT/HCPCS: 81001; 87086; 87088; 87186

== ENCOUNTER 2025-03-18 08:35 | Outpatient (AMB) | payer MEDICARE, SELFPAY ==
--- NOTE | 2025-03-18 08:39 | A.OFFPC_ITS ---
Vital Signs 03/18/25 08:40 Height 5 ft 6.93 in Weight 157 lb BMI 24.6 BP 118/69 Blood Pressure Location Rt brachial Position Sitting Respiration 14 Pulse 80 Pulse Source Pulse Oximeter Temp 97.8 F Temp Source Temporal Artery Scan Pulse Oximetry (%) 99 Oxygen Delivery Method Room Air Intake Visit Reasons: 1WK follow up Assembly Stock Supervisor Required: No Accompanied by: Self / Same As Patient Allergies No Known Allergies Allergy (Verified 03/18/25 08:40) Tobacco use date assessed: 01/11/25 Dental Screening Dental Screen Date: 03/11/25 HPI HPI Comments History of Present Illness Details History of Present Illness - The patient is a 69-year-old individua l presenting for a follow-up visit after a recent admission to the Emergency Department for feeling unwell. - During the hospital visit, laboratory work revealed hypokalemia, but a repeat test showed normal potassium levels. - A urine culture from the visit was res istant to Bactrim, amoxicillin, and Cipro. 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 - The patient is now feeling 100% better and is finishing the course of Macrobid. - The patient was concerned about an EKG from the hospital that was reported as abnormal with a Q-wave, possibly due to dehydration, but this was found to be a stable, non-acute finding. - The patient's medications include fluo xetine, lisinopril, rosuvastatin, and Ambien as needed for sleep. - Zepbound had been temporarily held and will be resumed for one more month. 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 Results - Labs: Potassium was low during the [facility] department visit but was normal on repeat testing. - Tests and Diagnostics: An EKG performe d in the hospital was noted to have a Q- wave, but this was determined to be a stable finding. - Microbiology: A urine culture was resi stant to Bactrim, amoxicillin, and Cipro. [facility] Medical History Pure hypercholesterolemia, unspecified Preventative health care Osteoporosis screening Hyperlipidemia LDL goal <100 Class 1 obesity with body mass index (BMI) of 32.0 to 32.9 in adult Establishing care with new doctor, encounter for Fracture of phalanx of index finger History of mammogram (~03/2024) Renal cell carcinoma of left kidney Renal lesion Osteoarthritis Menopausal symptoms Menopause Insomnia Hypertension Hot flashes Surgical History History of colonoscopy (~12/22/22) Total knee replacement status Family History Father BP (high blood pressure) Mother Cancer Parkinson disease Social History Housing: House Alcohol intake: current Alcohol intake frequency: a few times a week Patient Tobacco Use Status: Never used Tobacco service: No Current occupational status: retired Cognitive needs: No Hearing needs: No Vision needs: Yes (rx glasses) Questionnaire PHQ-9 Over the last 2 weeks, how often have you been bothered by any of the following problems? 1. Little interest or pleasure in doing things: not at all 2. Feeling down, depressed, or hopeless: not at all 3. Trouble falling or staying asleep, or sleeping too much: not at all 4. Feeling tired or having little energy: not at all 5. Poor appetite or overeating: not at all 6. Feeling bad about yourself - or that you are a failure or have let yourself or your family down: not at all 7. Trouble concentrating on things, such as reading the newspaper or watching television: not at all 8. Moving or speaking so slowly that other people could have noticed. Or the opposite - being so fidgety or restless that you have been moving around a lot more than usual: not at all 9. Thoughts that you would be better off or of hurting yourself in some way: not at all Total score: 0 Depression Screening Interpretation: Negative Depression Screening Done: Yes 17723 - PHQ-9 Billing: Yes Source: Developed by Drs. Osvaldo Santo, Patricia Britton, Martinez Rand and colleagues, with an educational isac from [employer]. Thrive Questionnaire Date Thrive assessed: 01/11/25 I am a: Patient What is your living situation today?: I have a steady place to live Within the past 12 months, did the food you bought not last and you didn't have the money to get more?: Never true Within the past 12 months, did you worry whether your food would run out before you got money to buy more?: Never true Do you have trouble paying for medicines?: No Do you have trouble getting transportation to medical appointments?: No Do you have trouble paying your heating and electricity bill?: No Do you have trouble taking care of your child, family member or friend?: No Do you have trouble with day-to-day activities such as bathing, preparing meals, shopping, managing finances, etc.?: No Are you currently unemployed and looking for a job?: No Are you interested in more education?: No Please select the resources that you would like help with: None THRIVE Score: 0 AUDIT C Alcohol Use Questionnaire (AUDIT-C) 1. How often do you have a drink containing alcohol?: 2-3 times a week 2. How many drinks containing alcohol do you have on a typical day when you are drinking?: 1 or 2 3. How often do you have six or more drinks on one occasion?: Never Total Score: 3 Score Reviewed/Action Taken: No WILLIAM-7 AMB Questionnaire WILLIAM-7 Date WILLIAM - 7 assessed: 01/11/25 Feeling nervous, anxious, or on edge: 0 = Not at all Not being able to stop or control worryin = Not at all Worrying too much about different things: 0 = Not at all Trouble relaxin = Not at all Being so restless that it is hard to sit still: 0 = Not at all Becoming easily annoyed or irritable: 0 = Not at all Feeling afraid as if something awful might happen: 0 = Not at all Total WILLIAM-7 score (0-4 normal; 5-9 mild; 10-14 moderate; 15-21 severe): 0 Source: Developed by Drs. Osvaldo Santo, Patricia Britton, Martinez Rand and colleagues, with an educational isac from [employer]. WILLIAM-7 Assessment Billing WILLIAM-7 Assessment Tool: WILLIAM-7 Assessment 72195 Review of Systems Narrative Review of Systems - Constitutional: Reports feeling 100% better. - Cardiovascular: Denies chest pain. - Neurological: Reports using Ambien for sleep. Physical exam (Primary Care) Vital Signs: Last Vital Signs Temp 97.8 F 03/18/25 08:40 Pulse 80 03/18/25 08:40 Resp 14 03/18/25 08:40 BP 118/69 03/18/25 08:40 Pulse Ox 99 03/18/25 08:40 Oxygen Delivery Method Room Air 03/18/25 08:40 BMI result Body Mass Index 24.6 Tobacco/Smoking Status: Tobacco use Status Tobacco use date assessed 01/11/25 03/18/25 08:45 Patient Tobacco Use Status Never used Tobacco 03/18/25 08:45 PHQ-9: PHQ-9 Score PHQ-9: Total score 0 03/18/25 08:45 Depression Screening Interpretation: Negative Thrive Assessment: Date of Thrive Assessment Date Thrive assessed 01/11/25 03/18/25 08:45 Narrative Physical Exam General: Cooperative and healthy appearing Nutritional Appearance: Well nourished Orientation/consciousness: Patient oriented x3 Limitations: No limitations Head: Normal to inspection General: Appearance normal, both eyes and all related structures Neck: Normal visual inspection Chest: Normal palpation of entire chest wall Respiratory: Normal respiratory effort Neurology: Patient oriented x3 Coding Level of Care Code Complex visit Add On G2211 Diagnoses Urinary tract infection N39.0 Additional Codes WILLIAM-7 Assessment Billing - WILLIAM-7 Assessment Tool: WILLIAM-7 Assessment 60912 ([id number]) PHQ-9 - 15439 - PHQ-9 Billing: Yes ([id number]) Assessment & Plan Assessment & Plan (1) Urinary tract infection: Code(s): N39.0 - Urinary tract infection, site not specified Plan Plan - Urinary Tract Infection: The patient will complete the course of Macrobid as symptoms have resolved. - Medication Management: The patient will continue fluoxetine, lisinopril, and rosuvastatin. - Zepbound: The patient will resume Zepbound for one more month. - Insomnia: A refill of Ambien for 10 tablets will be sent to the pharmacy. - Follow-up: The patient will keep the scheduled follow-up appointment in June. Discussion Notes I discussed the recent emergency department visit with the patient, who reports feeling much better and is back to normal. We reviewed that the antibiotic for the urinary tract infection was appropriately changed to Macrobid based on culture results, and I advised the patient to complete the full course. I reassured the patient that the EKG from the hospital was stable and not a cause for concern. We also discussed medication management, including the decision to resume Zepbound for one more month. I agreed to send a refill for 10 tablets of Ambien. The patient will continue current medications and keep the scheduled follow-up in June. Patient Instructions - Please finish the entire course of your Macrobid antibiotic. - You may restart Zepbound and continue it for one more month. - A prescription for 10 tablets of Ambien has been sent to your pharmacy. - Continue taking all your other regular medications as prescribed. - Please keep your scheduled follow-up appointment in June. Medications: Refilled zolpidem 10 mg PO BEDTIME 10 tabs 0RF
[2025-03-18 08:40] VITALS: BP 118/69; PULSE 80; RESP 14; TEMP 36.6; O2SAT 99; BMI 24.6
--- OUTSIDE RECORDS SUMMARY | 2025-03-18 09:02 | XMS_ITS | Clinical Summary ---
Author Organization [facility] it Address [address] [place] [address] Care Team Providers Care Shift Supervisor Rn Name Role Phone Unavailable Primary Care Provider [...]
--- OUTSIDE RECORDS SUMMARY | 2025-03-18 09:02 | XMS_ITS | Clinical Summary ---
Author Organization [facility] Address [address] [place] [id number] Phone Care Team Providers Care Supervisor Pyrotechnic Loading Name Role Phone Heena Hurt CORE PILER Unavailable [phone] Pcp, Unknown Primary Care Provider Unavailabl [...] Cancer was dx by Dr. Morales at [facility] in 2017. 11/2016 had a bx [...] NP LAB BLOOD BKR ORDERABLES Final Result [address] [id number] * Outside Potassium Level (04/04/2023) Potassium level - External 4.3 3.4 - 5.0 mmol/L Result [facility] Historical Provider LAB BLOOD ORDERABLES Ariana l Result * Outside Glucose,Fasting (04/04/2023) Glucose, fasting - External 96 65 - 99 mg/dL Result [facility] Historical Provider LAB BLOOD ORDERABLES Ariana l [...] Relevant to Health Maintenance Insurance [facility] [place] [address] [address] [address] PPO [facility] Care Teams Supervisor Pyrotechnic Loading Relationship Specialty Start Date End Date Pcp, Unknown PCP - General 06/17/23 Heena Hurt NP [email or web address] Historical LMR Provider 01/31/17 Additional Source Comments The information contained in this document represents components of the legal health record. It is not the complete legal health record.[facility]
== END 2025-03-18 08:54 | disposition home or self-care (01) ==
LOC: HO.HMCSH 08:36
PROVIDERS: PCP Physician Assistant Medical; Visit Provider Internal Medicine
DX: N39.0 Urinary tract infection, site not specified (principal)

== ENCOUNTER → 2025-03-18 08:35 | Outpatient (BNVA) | payer MEDICARE, SELFPAY | PROVIDERS: PCP Physician Assistant Medical; Visit Provider Internal Medicine | DX: Z09 Encounter for follow-up examination after completed treatment for conditions other than malignant neoplasm (principal); G47.00 Insomnia, unspecified; N39.0 Urinary tract infection, site not specified; Z13.31 Encounter for screening for depression; Z79.899 Other long term (current) drug therapy | CPT/HCPCS: 96127; 99212 ==